=== PATIENT | female | born 1950 | race Caucasian/White ===

== ENCOUNTER → 2017-10-23 | Outpatient (CLI) | payer MEDICARE, OTHER ==
[~2017-10-23] MED LIST: AMLO10 PO; ATOR40TA PO; ATOR80 PO; CITA20 PO; CLOP75 PO; ENOX40I; GABA100 PO; GABA300; GABA400; GABA400 PO; Humalog100 UNIT/1; INSLI100I; INSUL100I SUBQ; INSULANI SC; INSULANI SUBQ; INSULANPEN INJ; INSULANPEN SC; LEVSOD100 PO; LEVSOD50 PO; LEVSOD75 PO; LISI10 PO; MEDICAL MARIJUANA; METH5 PO; Novolog Fl100 UNIT/1 INJ; OXYACE5T PO; PANT40 PO; UNKNOWN BP MED; WARF1 PO; WARF5; [UNRECOGNIZED DRUG - REMARK]
== END | disposition home or self-care (01) ==
LOC: LAB 11:58 → LAB SHORT 11:58
DX: R30.0 Dysuria (principal)
CPT/HCPCS: 87086

== ENCOUNTER 2018-06-20 11:05 | Day surgery (SDC) | payer MEDICARE, OTHER ==
[~2018-06-20] VITALS: Ht 160 cm; Wt 62.4 kg
[~2018-06-20 11:05] MED LIST changes: +Humalog100 UNIT/1 SC; +INSDET100 SC; +VARE1 PO
== END 2018-06-20 14:25 | disposition home or self-care (01) ==
LOC: ORSCSDS 11:05
PROVIDERS: Ophthalmology
PROC: 08RJ3JZ Replacement of Right Lens with Synthetic Substitute, Percutaneous Approach (ICD-10-PCS; principal; 2018-06-20 12:30)
DX: H25.11 Age-related nuclear cataract, right eye (principal); I10 Essential (primary) hypertension; F32.9 Major depressive disorder, single episode, unspecified; E11.36 Type 2 diabetes mellitus with diabetic cataract; E03.9 Hypothyroidism, unspecified; Z86.73 Personal history of transient ischemic attack (TIA), and cerebral infarction without residual deficits; Z87.891 Personal history of nicotine dependence; Z79.4 Long term (current) use of insulin; Z79.899 Other long term (current) drug therapy
CPT/HCPCS: 82947; J2001; J2250; J3010; J7120; V2632

== ENCOUNTER 2018-09-27 09:10 | Day surgery (SDC) | payer MEDICARE, OTHER ==
[~2018-09-27] VITALS: Ht 160 cm; Wt 64.1 kg
--- NOTE | 2018-09-27 10:18 | NUR ---
09/27/18 Dilan8 Haresh Carrasco 1ST IV ATTEMPT IN LH UNSUCCESSFUL, ORSC.CLARISSA 2ND IV ATTEMPT IN LH SUCCESSFUL, ORSC.TAVIA
--- NOTE | 2018-09-27 13:06 | NUR ---
09/27/18 4606 Radha Mckoen DISCUSSION WITH PATIENT REGARDING HYDROCODONE ALLERGY. PATIENT UNSURE WHY IT IS LISTED ALLERGY AND DOESN'T REMEMBER WHAT THE PROBLEM WAS. I CALLED HER PHARMACY--[facility]--AND THEY HAVE NO INFORMATION AND DO NOT LIST HYDROCODONE AN ALLERGY AND HAVE NEVER RX'D IT FOR HER. PATIENT ASKS ME IF I WILL TALK WITH DR DAVE AND ASK HIM IF HE WANTS HER TO TRY THIS. I GO TO THE OR AND SPEAK WITH DR DAVE AND HE CONFIRMS THAT SHE IS TO TRY THE HYDROCODONE AND BE SURE TO TAKE WITH FOOD AND TO CALL IF ANY PROBLEMS. I ALSO GET THE INFORMATION SHE IS TO RESTART HER PLAVIX TONIGHT. THIS WAS RELAYED TO THE PATIENT AND SHE VERBALIZES UNDERSTANDING OF ALL OF THE ABOVE INFORMATION. PATIENT WAS VERBALIZING THROUGHOUT THE STEP DOWN PROCESS THAT SHE WAS READY TO GO AND HAD NO PAIN OR PROBLEMS. SHE WAS DISCHARGED IN STABLE CONDITION
== END 2018-09-27 13:04 | disposition home or self-care (01) ==
LOC: ORSCSDS 09:10
PROVIDERS: Podiatrist Foot & Ankle Surgery
PROC: 0SGQ04Z Fusion of Left Toe Phalangeal Joint with Internal Fixation Device, Open Approach (ICD-10-PCS; principal; 2018-09-27 11:00)
PROC: 0SGN04Z Fusion of Left Metatarsal-Phalangeal Joint with Internal Fixation Device, Open Approach (ICD-10-PCS; principal; 2018-09-27 11:00)
PROC: 0QSP04Z Reposition Left Metatarsal with Internal Fixation Device, Open Approach (ICD-10-PCS; principal; 2018-09-27 11:00)
PROC: 0SQN0ZZ Repair Left Metatarsal-Phalangeal Joint, Open Approach (ICD-10-PCS; principal; 2018-09-27 11:00)
DX: M20.12 Hallux valgus (acquired), left foot (principal); M20.22 Hallux rigidus, left foot; M21.969 Unspecified acquired deformity of unspecified lower leg; M20.40 Other hammer toe(s) (acquired), unspecified foot; M77.42 Metatarsalgia, left foot; I10 Essential (primary) hypertension; E11.9 Type 2 diabetes mellitus without complications; E03.9 Hypothyroidism, unspecified; Z87.891 Personal history of nicotine dependence; Z79.899 Other long term (current) drug therapy
CPT/HCPCS: 82947; C1713; C1769; J0690; J2250; J2405; J2704; J3010; J7120

== ENCOUNTER → 2019-10-16 | Outpatient (CLI) | payer OTHER ==
[2019-10-16 14:48] LABS: BASOPHILS ABSOLUTE AUTO 0.08 K/mm3 (0.00-0.23); BASOPHILS PERCENT AUTO 2 % (0-2); EOSINOPHILS PERCENT AUTO 0 % (0-6); Hematocrit 41.5 % (33.0-51.0); Hemoglobin 13.7 g/dL (11.5-16.0); IMMATURE GRAN ABSOLUTE AUTO 0.01 K/mm3 (0.00-0.10); IMMATURE GRAN PERCENT AUTO 0 % (0-1); LYMPHOCYTES PERCENT AUTO 26 % (21-46); MONOCYTES ABSOLUTE AUTO 0.31 K/mm3 (0.16-1.47); MONOCYTES PERCENT AUTO 6 % (4-13); Mean Corpuscular HGB 28.7 pg (26.0-34.0); Mean Corpuscular Volume 87 fL (80-100); Mean Platelet Volume 10.2 fL (9.1-12.4); NEUTROPHILS PERCENT AUTO 67 % (41-73); Platelet Count 261 K/mm3 (150-400); RDW Coefficient Variation 12.2 % (11.7-14.2); RDW Standard Deviation 39.2 fL (35.1-46.3); Red Blood Cell Count 4.77 M/mm3 (3.80-5.20)
[2019-10-16 15:48] LABS: Alanine Aminotransfer (ALT/SGP 24 U/L (12-78); Albumin/Globulin Ratio 1.2 (0.8-1.8); Alk Phos 94 U/L (50-136); Anion Gap 8 mmol/L (6-16); Aspartate Aminotrans (AST/SGOT 18 U/L (12-37); Bilirubin, Total 1.3 mg/dL (0.1-1.0); Blood Urea Nitrogen 7 mg/dL (8-24); Bun/Creatinine Ratio 11.6 (12.0-20.0); CHOL/HDL RATIO 1.6; CO2, Blood 26 mmol/L (21-32); Calcium, Blood 9.2 mg/dL (8.5-10.1); Chloride, Blood 101 mmol/L (98-108); Cholesterol 156 mg/dL (50-200); Globulin, Blood 3.4 g/dL (2.2-4.0); Glomerular Filtration Rate >60 (60-); Glucose, Blood 155 mg/dL (70-99); HDL Cholesterol 98 mg/dL (>39); LDL/HDL RATIO 0.5; Low Density Lipoprotein Chol 50 mg/dL (0-110); Potassium, Blood 3.8 mmol/L (3.5-5.5); Sodium, Blood 135 mmol/L (136-145); Total Protein, Blood 7.4 g/dL (6.4-8.2); Triglycerides 40 mg/dL (30-160); Very Low Density Lipoprot Chol 8 mg/dL (6-32)
== END ==
PROVIDERS: Nurse Practitioner Family
DX: E11.40 Type 2 diabetes mellitus with diabetic neuropathy, unspecified (principal)

== ENCOUNTER → 2021-03-15 | Outpatient (CLI) | payer OTHER | END | disposition home or self-care (01) | LOC: LAB SHORT 11:08 | DX: L30.9 Dermatitis, unspecified (principal) | CPT/HCPCS: 88305; 88312 ==

== ENCOUNTER 2022-03-16 09:55 | Inpatient (IN) | payer OTHER ==
[~2022-03-16] VITALS: Ht 160 cm; Wt 65.9 kg
[~2022-03-16 09:55] MED LIST changes: +ASPI81CH PO; +ATOR20 PO; -ATOR40TA PO; +EUTHYROX50 MCG PO; +FAMO20 PO; +FIASP 100100 UNIT/4 SC; +HUMULIN R100 UNIT/2 SC; +INSULIN GL100 UNIT/2 SC
[2022-03-16 10:58] LABS: BASOPHILS ABSOLUTE AUTO 0.06 K/mm3 (0.00-0.23); BASOPHILS PERCENT AUTO 0 % (0-2); EOSINOPHILS ABSOLUTE AUTO 0.01 K/mm3 (0.00-0.68); EOSINOPHILS PERCENT AUTO 0 % (0-6); Hematocrit 42.4 % (33.0-51.0); Hemoglobin 13.9 g/dL (11.5-16.0); IMMATURE GRAN ABSOLUTE AUTO 0.13 K/mm3 (0.00-0.10); IMMATURE GRAN PERCENT AUTO 1 % (0-1); LYMPHOCYTES ABSOLUTE AUTO 1.15 K/mm3 (0.84-5.20); LYMPHOCYTES PERCENT AUTO 8 % (21-46); MONOCYTES ABSOLUTE AUTO 1.16 K/mm3 (0.16-1.47); MONOCYTES PERCENT AUTO 8 % (4-13); Mean Corpuscular HGB 29.1 pg (26.0-34.0); Mean Corpuscular HGB Conc 32.8 g/dL (31.5-36.5); Mean Corpuscular Volume 89 fL (80-100); Mean Platelet Volume 11.4 fL (9.1-12.4); NEUTROPHILS ABSOLUTE AUTO 12.28 K/mm3 (1.96-9.15); NEUTROPHILS PERCENT AUTO 83 % (41-73); Platelet Count 278 K/mm3 (150-400); RDW Coefficient Variation 13.1 % (11.7-14.2); RDW Standard Deviation 42.9 fL (35.1-46.3); Red Blood Cell Count 4.77 M/mm3 (3.80-5.20); White Blood Cell Count 14.79 K/mm3 (4.00-11.30)
[2022-03-16 10:59] LABS: Base Excess Venous -22.2 mmol/L
[2022-03-16 11:01] LABS: pH Blood Venous 7.08 (7.34-7.37)
[2022-03-16 11:23] LABS: Alanine Aminotransfer (ALT/SGP 24 U/L (12-78); Albumin/Globulin Ratio 1.1 (0.8-1.8); Alk Phos 87 U/L (50-136); Anion Gap 37 mmol/L (6-16); Aspartate Aminotrans (AST/SGOT 25 U/L (12-37); Bilirubin, Total 1.1 mg/dL (0.1-1.0); Blood Urea Nitrogen 42 mg/dL (8-24); Bun/Creatinine Ratio 38.2 (12.0-20.0); CO2, Blood 9 mmol/L (21-32); Calcium, Blood 9.9 mg/dL (8.5-10.1); Chloride, Blood 85 mmol/L (98-108); Globulin, Blood 3.5 g/dL (2.2-4.0); Glomerular Filtration Rate 54 (60-); Glucose, Blood 790 mg/dL (70-99); Potassium, Blood 4.5 mmol/L (3.5-5.5); Sodium, Blood 131 mmol/L (136-145); Total Protein, Blood 7.5 g/dL (6.4-8.2)
[2022-03-16 11:28] LABS: Magnesium, Blood 2.2 mg/dL (1.6-2.4)
[2022-03-16 11:34] LABS: Beta-hydroxybutyrate 131.9 mg/dL (0.2-2.8)
[2022-03-16 12:00] LABS: Influenza A, PCR NEGATIVE (NEGATIVE); Influenza B, PCR NEGATIVE (NEGATIVE); Resp Syncytial Virus, PCR NEGATIVE (NEGATIVE)
[2022-03-16 12:03] LABS: SARS-Cov-2 (COVID-19) PCR, MMC POSITIVE (NEGATIVE)
[2022-03-16 13:35] LABS: Source, Urine Clean Catch
[2022-03-16 14:01] LABS: Appearance, Urine Clear (Clear); Bilirubin, Urine Neg (Neg); Blood, Urine Neg (Neg); Color, Urine Yellow (P-Yellow); Glucose Qualitative, Urine 4+ (Neg); Ketones, Urine 4+ (Neg); Leukocyte Esterase, Urine 1+ (Neg); Nitrite, Urine Neg (Neg); Protein, Urine 2+ (Neg); Urobilinogen, Urine NORM (Normal)
[2022-03-16 14:08] LABS: Mucus Light (0-Heavy)
[2022-03-16 14:09] LABS: Amorphous Light (0-Heavy); Bacteria Mod /hpf; Red Blood Cells, Urine 0-2 /hpf (0-2); Squamous Epithelial Cells Few /hpf (Few)
[2022-03-16 14:41] LABS: Glucose, Blood 694 mg/dL (70-99)
[2022-03-16 15:33] LABS: Glucose, Blood 590 mg/dL (70-99)
[2022-03-16 17:27] LABS: Bun/Creatinine Ratio 35.8 (12.0-20.0); Creatinine, Blood 1.06 mg/dL (0.40-1.00); Potassium, Blood 3.4 mmol/L (3.5-5.5)
--- NOTE | 2022-03-16 17:27 | NUR ---
Admission/[place] of Care: Patient arrived from ED via stretcher, accompanied by ED RN's. Patient alert and oriented x4. Denies pain, discomfort, SOB, or dyspnea. VSS, spO2 100% on RA. Peripheral IVs to left AC and left hand. Left AC IV patent and intact. Left hand IV very painful with flushing, therefore d/c'd without difficulty. New Powerglide ST placed to DEDRICK without difficulty. Arrived with insulin gtt at 6.4u/hr, resumed at 6u/hr by this RN, then decreased to 4u/hr as blood glucose decreasing at slightly over 100/hr. Voided using bedpan without difficulty. Instructed on use of call light and to not get out of bed without assistance. Will continue to monitor.
[2022-03-16 20:51] LABS: Bun/Creatinine Ratio 36.8 (12.0-20.0); Calcium, Blood 8.8 mg/dL (8.5-10.1); Creatinine, Blood 0.93 mg/dL (0.40-1.00); Potassium, Blood 4.1 mmol/L (3.5-5.5)
[2022-03-17 02:08] LABS: Bun/Creatinine Ratio 36.3 (12.0-20.0); Calcium, Blood 8.6 mg/dL (8.5-10.1); Creatinine, Blood 0.77 mg/dL (0.40-1.00); Potassium, Blood 3.9 mmol/L (3.5-5.5)
[2022-03-17 05:06] LABS: Hematocrit 33.2 % (33.0-51.0); Hemoglobin 11.8 g/dL (11.5-16.0); Mean Corpuscular HGB 28.9 pg (26.0-34.0); Mean Corpuscular HGB Conc 35.5 g/dL (31.5-36.5); Mean Platelet Volume 10.2 fL (9.1-12.4); Platelet Count 232 K/mm3 (150-400); RDW Standard Deviation 38.8 fL (35.1-46.3); Red Blood Cell Count 4.08 M/mm3 (3.80-5.20); White Blood Cell Count 14.06 K/mm3 (4.00-11.30)
[2022-03-17 05:25] LABS: Albumin, Blood 3.1 g/dL (3.4-5.0); Albumin/Globulin Ratio 1.1 (0.8-1.8); Bilirubin, Total 0.5 mg/dL (0.1-1.0); Bun/Creatinine Ratio 38.1 (12.0-20.0); Calcium, Blood 8.4 mg/dL (8.5-10.1); Creatinine, Blood 0.66 mg/dL (0.40-1.00); Globulin, Blood 2.8 g/dL (2.2-4.0); Potassium, Blood 3.7 mmol/L (3.5-5.5); Total Protein, Blood 5.9 g/dL (6.4-8.2)
--- NOTE | 2022-03-17 05:39 | NUR ---
SHIFT SUMMARY: PT. REMAINED STABLE OVERNIGHT, INSULIN WAS ABLE TO BE BROUGHT DOWN TO 2 UNITS, BG WAS LAST 136. PT. HAS D5 GOING AT 100. OTHERWISE PT. HAD NO COMPLAINTS BESIDES A BRIEF EPISODE OF NAUSEA. PT. SATTED WELL ON RA OVERNIGHT AND BP WAS STABLE AND WNL. HR WAS NSR WITH OCCASIONAL PVCS. PT. HAD 800 UOP OVERNIGHT AND GAP IS 7. PT. RESTING WITH CALL LIGHT WITHIN REACH.
[2022-03-17 05:57] LABS: Mean Corpuscular Volume 81 fL (80-100)
--- NOTE | 2022-03-17 07:05 | NUR ---
TOOK OVER CARE OF PT AT 0700, PT RESTING ON RA, INSULIN GTT AT 2 UNITS/HR, D5W RUNNING AT 100ML/HR
[2022-03-17] MEDS ORDERED: Insulin Glargine-Yfg SC (07:13)
[2022-03-17] MEDS ORDERED: AMLO10 PO (07:14)
[2022-03-17] MEDS ORDERED: ASPI81CH PO (07:16)
[2022-03-17] MEDS ORDERED: ATORVASTATIN CA80 M1 PO (07:17)
[2022-03-17] MEDS ORDERED: FAMO20 PO (07:18)
[2022-03-17] MEDS ORDERED: SYNTHROID75 MCG PO (07:19)
[2022-03-18 02:17] LABS: Anion Gap 19 mmol/L (6-16); Blood Urea Nitrogen 19 mg/dL (8-24); Bun/Creatinine Ratio 31.2 (12.0-20.0); CO2, Blood 16 mmol/L (21-32); Calcium, Blood 8.6 mg/dL (8.5-10.1); Chloride, Blood 103 mmol/L (98-108); Creatinine, Blood 0.61 mg/dL (0.40-1.00); Glomerular Filtration Rate 97 (60-); Glucose, Blood 391 mg/dL (70-99); Magnesium, Blood 2.2 mg/dL (1.6-2.4); Phosphorus, Blood 1.9 mg/dL (2.5-4.9); Potassium, Blood 4.3 mmol/L (3.5-5.5); Sodium, Blood 138 mmol/L (136-145)
[2022-03-18 02:22] LABS: BASOPHILS ABSOLUTE AUTO 0.02 K/mm3 (0.00-0.23); BASOPHILS PERCENT AUTO 0 % (0-2); EOSINOPHILS PERCENT AUTO 0 % (0-6); Hematocrit 35.4 % (33.0-51.0); Hemoglobin 12.1 g/dL (11.5-16.0); IMMATURE GRAN ABSOLUTE AUTO 0.11 K/mm3 (0.00-0.10); IMMATURE GRAN PERCENT AUTO 1 % (0-1); LYMPHOCYTES PERCENT AUTO 6 % (21-46); MONOCYTES ABSOLUTE AUTO 0.79 K/mm3 (0.16-1.47); MONOCYTES PERCENT AUTO 6 % (4-13); Mean Corpuscular HGB 28.7 pg (26.0-34.0); Mean Corpuscular HGB Conc 34.2 g/dL (31.5-36.5); Mean Corpuscular Volume 84 fL (80-100); NEUTROPHILS ABSOLUTE AUTO 11.19 K/mm3 (1.96-9.15); NEUTROPHILS PERCENT AUTO 87 % (41-73); Platelet Count 213 K/mm3 (150-400); RDW Coefficient Variation 13.3 % (11.7-14.2); RDW Standard Deviation 40.9 fL (35.1-46.3); Red Blood Cell Count 4.21 M/mm3 (3.80-5.20); White Blood Cell Count 12.91 K/mm3 (4.00-11.30)
--- NOTE | 2022-03-18 05:24 | NUR ---
ICING AND GLAZE MAKER SUMMARY: A&Ox4. PLEASANT AND COOPERATIVE WITH CARE. VSS; LOW-GRADE FEVER NOTED LAST NIGHT, BUT QUICKLY RESOLVED. NO C/O PAIN OR DISCOMFORT T/O THE NIGHT. LABS EARLY THIS AM DRAWN FROM [employer]; PATENT, FLUSHES, DRAWS AND IS SALINE LOCKED. NO ACUTE CONCERNS T/O THE NIGHT. WILL REPORT TO ONCOMING RN.
[2022-03-18 10:27] LABS: Glucose, Blood 305 mg/dL (70-99)
[2022-03-18 12:33] LABS: Bun/Creatinine Ratio 23.3 (12.0-20.0); Calcium, Blood 8.2 mg/dL (8.5-10.1); Creatinine, Blood 0.65 mg/dL (0.40-1.00); Potassium, Blood 4.1 mmol/L (3.5-5.5)
[2022-03-18 15:19] LABS: Glucose, Blood 224 mg/dL (70-99)
--- NOTE | 2022-03-18 16:36 | NUR ---
PT AOX4 AND COOPERATIVE OF CARE. PT WAS NPO DUE TO HIGH CBGS IN AM. DR FREITAS ADDED MEDICATIONS TO EMAR AND PT WAS TREATED. LAST THREE LAB CPGs 305, 262 AND THEN 224. PT DID NOT EAT LUNCH WELL. WILL CONTINUE TO MONITOR. CALL LIGHT IS WITHIN REACH.
[2022-03-19 02:27] LABS: Hematocrit 32.4 % (33.0-51.0); Hemoglobin 11.7 g/dL (11.5-16.0); Mean Corpuscular HGB 29.4 pg (26.0-34.0); Mean Corpuscular HGB Conc 36.1 g/dL (31.5-36.5); Mean Corpuscular Volume 81 fL (80-100); Mean Platelet Volume 9.5 fL (9.1-12.4); Platelet Count 180 K/mm3 (150-400); RDW Coefficient Variation 13.2 % (11.7-14.2); RDW Standard Deviation 39.3 fL (35.1-46.3); Red Blood Cell Count 3.98 M/mm3 (3.80-5.20); White Blood Cell Count 6.18 K/mm3 (4.00-11.30)
[2022-03-19 03:05] LABS: Bun/Creatinine Ratio 15.4 (12.0-20.0); Calcium, Blood 8.6 mg/dL (8.5-10.1); Creatinine, Blood 0.52 mg/dL (0.40-1.00); Potassium, Blood 3.2 mmol/L (3.5-5.5)
--- NOTE | 2022-03-19 04:46 | NUR ---
OUTPATIENT ADMITTING CLERK SUMMARY: A&Ox4. PLEASANT AND COOPERATIVE WITH CARE. VSS. CONTINUES TO C/O SEVERE FATIGUE. CONTINUES WITH FREQUENT GLUCOSE CHECKS. HELD GLARGINE LAST NIGHT D/T GLUCOSE OF 135; GLUCOSE AT 0200 CHECK WAS 117. STILL NO INTEREST IN ANY FOOD AND HARDLY DRINKING. REPORTS FEELING MALAISED AND WANTING TO SLEEP ALL OF THE TIME. WILL REPORT TO ONCOMING RN.
[2022-03-19 09:05] LABS: Bun/Creatinine Ratio 14.1 (12.0-20.0); Calcium, Blood 8.6 mg/dL (8.5-10.1); Creatinine, Blood 0.5 mg/dL (0.40-1.00); Potassium, Blood 3.3 mmol/L (3.5-5.5)
--- NOTE | 2022-03-19 12:36 | NUR ---
PT STATES THAT SHE CONTINUES TO HAVE DECREASED APPETITE. "NOTHING TASTES GOOD." PER DR. SWAIN'S REQUEST WHILE HE WAS ROUNDING THIS AM, PT HAS BEEN SELF-ADMINISTERING INSULIN INJECTIONS. PT C/O FATIGUE AND HEADACHE. SHE IS ALERT TO PERSON, PLACE, SELF, BUT WILL SEEM CONFUSED AT TIMES. FOR EXAMPLE, WHILE GIVING HERSELF INSULIN INJECTION RN HAD TO BANDAGE MAKER PT WHEN TO REMOVE THE COVER FROM THE PEN NEEDLE, AND HOW TO HOLD THE NEEDLE, ETC.
--- NOTE | 2022-03-19 17:05 | NUR ---
SHIFT SUMMARY PT IS ON ISOLATION PRECAUTIONS FOR COVID. ADMITTED FOR DKA. FATIGUE R/T COVID. SHE IS SOMEWHAT CONFUSED/FORGETFUL AT TIMES. BOTH SONS VISITED HER TODAY. BLOOD SUGARS RANGED FROM 170'S TO 264. RHINITIS AND CONGESTED COUGH. PT DENIES PAIN OR SOB. LUNGS ARE DIMINISHED BUT CRACKLY AT BASES. RECEIVED POTASSIUM CHLORIDE THIS AM FOR POTASSIUM OF 3.2. PT IS ABLE TO USE CALL LIGHT APPROPRIATELY. SHE IS INDEPENDENT IN ROOM.
--- NOTE | 2022-03-20 01:12 | NUR ---
AT [id number] THIS RN RETURNED TO NURSE CROP SETTING OUT MACHINE OPERATOR AND HEARD BANGING. WENT TO PT'S ROOM AND FOUND HER SITTING IN THE THE SHOWER, WITH HER LEGS OUTSIDE OF IT. PT STATED SHE FELL WHILE TRYING TO GO TO THE BATHROOM. ASKED WHY SHE DID NOT CALL AND SHE ASKED, "HOW AM I SUPPOSED TO DO THAT? THE BUTTON IS ON THE BED!" NO C/O PAIN. NO BLEEDING NOTED. DENIES HITTING HEAD OR LOC. NO VISIBLE INJURIES NOTED. VS OBTAINED: 148/84, 85bpm, 97% RA, CAPILLARY GLUCOSE 211. RESIDENT DR MARY DO NOTIFIED. PT HAD BEEN CHECKED ON LESS THAN AN HOUR PRIOR, TAKEN TO BATHROOM, REPOSITIONED IN BED AND ENSURED CALL LIGHT WAS IN PT'S HAND AND HAD PT VOICE TO THIS RN HOW TO CALL FOR ASSISTANCE. PT DID START MIRTAZAPINE 15MG AT BEDTIME. NO OTHER NOTABLE CHANGES. BED ALARM SET AND EDUCATION RE-ENFORCED. WILL CONTINUE TO MONITOR.
--- NOTE | 2022-03-20 04:52 | NUR ---
PUBLIC RELATIONS STUDIES DIRECTOR SUMMARY: A&Ox4. PLEASANT WITH CARE, BUT UNDERESTIMATES ABILITIES. HAD AN UNWITNESSED, NON-INJURY FALL LAST NIGHT. 3 RNs ASSISTED PT UP AND BACK INTO BED & BED ALARM ENGAGED. VS AND CAPILLARY GLUCOSE OBTAINED; ALL WNL. NO C/O PAIN AND NO OBVIOUS INJURIES. SHE DID START NEW MEDICATION, MIRTAZAPINE LAST NIGHT. VSS. VOIDING. NOTED TO HAVE HACKING COUGH; OBTAINED ORDER FOR PRN MARGOT PATIÑO QID PRN BUT HAS NOT NEEDED SINCE OBTAINING ORDER. WILL REPORT TO ONCOMING RN.
[2022-03-20 05:44] LABS: Hematocrit 36.7 % (33.0-51.0); Hemoglobin 13.1 g/dL (11.5-16.0)
[2022-03-20 06:14] LABS: Bilirubin, Total 1.5 mg/dL (0.1-1.0); Bun/Creatinine Ratio 12.8 (12.0-20.0); Calcium, Blood 8.8 mg/dL (8.5-10.1); Creatinine, Blood 0.55 mg/dL (0.40-1.00); Globulin, Blood 3.1 g/dL (2.2-4.0); Potassium, Blood 3.1 mmol/L (3.5-5.5); Total Protein, Blood 6.1 g/dL (6.4-8.2)
[2022-03-20] MEDS ORDERED: AMLO5 PO (15:45)
[2022-03-20] MEDS ORDERED: Benzonatate100 MG PO (15:46)
[2022-03-20] MEDS ORDERED: HUMALOG KW100 UNIT/1 SC ×2 (15:49→15:51)
[2022-03-20] MEDS ORDERED: MIRT15 PO (15:53)
== END 2022-03-20 16:52 | disposition home or self-care (01) | DRG 637 ==
LOC: ER 09:55 → ICUW 12:27 → ICUE 12:27 → MEDS 12:27 → ICUE 15:24 → MEDS 03-17 16:43
PROVIDERS: Emergency Medicine; Family Medicine; Nurse Practitioner Acute Care; Student in an Organized Health Care Education/Training Program; ADMIT Internal Medicine
PROC: 8E0ZXY6 Isolation (ICD-10-PCS; principal; 2022-03-16)
DX: E11.10 Type 2 diabetes mellitus with ketoacidosis without coma (principal); G92.8 Other toxic encephalopathy; U07.1 COVID-19; N17.9 Acute kidney failure, unspecified; E78.5 Hyperlipidemia, unspecified; I10 Essential (primary) hypertension; Z86.73 Personal history of transient ischemic attack (TIA), and cerebral infarction without residual deficits; E03.9 Hypothyroidism, unspecified; Z88.8 Allergy status to other drugs, medicaments and biological substances; F32.A Depression, unspecified; M06.9 Rheumatoid arthritis, unspecified; Z98.890 Other specified postprocedural states; Z98.42 Cataract extraction status, left eye; Z98.41 Cataract extraction status, right eye; Z88.5 Allergy status to narcotic agent; D72.828 Other elevated white blood cell count; Z87.891 Personal history of nicotine dependence
CPT/HCPCS: 0241U; 36415; 71045; 80048; 80053; 80069; 81001; 82010; 82803; 82947; 83036; 83605; 83690; 83735; 83880; 85014; 85018; 85025; 85027; 87086; 93005; 93010; 96361; 96365; 96366; 96375; 96376; 99285-25; A9270; C1751; J1650; J1815; J2405; J3475; J3480; J7030; J7042; J7050; J7120

== ENCOUNTER → 2022-10-24 | Outpatient (CLI) | payer OTHER ==
[~2022-10-24] MED LIST changes: +AMLO5 PO; +ATORVASTATIN CA80 M1 PO; +Benzonatate100 MG PO; +HUMALOG KW100 UNIT/1 SC; +Insulin Glargine-Yfg SC; +MIRT15 PO; +SYNTHROID75 MCG PO
[2022-10-24 17:15] LABS: BASOPHILS ABSOLUTE AUTO 0.08 K/mm3 (0.00-0.23); BASOPHILS PERCENT AUTO 1 % (0-2); EOSINOPHILS ABSOLUTE AUTO 0.02 K/mm3 (0.00-0.68); EOSINOPHILS PERCENT AUTO 0 % (0-6); Hemoglobin 13.3 g/dL (11.5-16.0); IMMATURE GRAN ABSOLUTE AUTO 0.01 K/mm3 (0.00-0.10); IMMATURE GRAN PERCENT AUTO 0 % (0-1); LYMPHOCYTES PERCENT AUTO 25 % (21-46); MONOCYTES ABSOLUTE AUTO 0.41 K/mm3 (0.16-1.47); MONOCYTES PERCENT AUTO 7 % (4-13); Mean Corpuscular HGB 28.1 pg (26.0-34.0); Mean Corpuscular HGB Conc 34.1 g/dL (31.5-36.5); Mean Corpuscular Volume 83 fL (80-100); Mean Platelet Volume 11.1 fL (9.1-12.4); NEUTROPHILS ABSOLUTE AUTO 3.64 K/mm3 (1.96-9.15); NEUTROPHILS PERCENT AUTO 65 % (41-73); Platelet Count 251 K/mm3 (150-400); RDW Standard Deviation 39.1 fL (35.1-46.3); Red Blood Cell Count 4.73 M/mm3 (3.80-5.20); White Blood Cell Count 5.56 K/mm3 (4.00-11.30)
[2022-10-24 18:21] LABS: Alanine Aminotransfer (ALT/SGP 22 U/L (12-78); Albumin, Blood 3.8 g/dL (3.4-5.0); Alk Phos 99 U/L (50-136); Anion Gap 7 mmol/L (6-16); Aspartate Aminotrans (AST/SGOT 21 U/L (12-37); Bilirubin, Total 1.1 mg/dL (0.1-1.0); Blood Urea Nitrogen 16 mg/dL (8-24); Bun/Creatinine Ratio 23.7 (12.0-20.0); CHOL/HDL RATIO 1.7; CO2, Blood 25 mmol/L (21-32); Calcium, Blood 9.5 mg/dL (8.5-10.1); Chloride, Blood 101 mmol/L (98-108); Cholesterol 129 mg/dL (50-200); Creatinine, Blood 0.68 mg/dL (0.40-1.00); Globulin, Blood 3.7 g/dL (2.2-4.0); Glomerular Filtration Rate 94 (60-); Glucose, Blood 316 mg/dL (70-99); HDL Cholesterol 74 mg/dL (>39); LDL/HDL RATIO 0.6; Low Density Lipoprotein Chol 44 mg/dL (0-110); Potassium, Blood 4.2 mmol/L (3.5-5.5); Sodium, Blood 133 mmol/L (136-145); Total Protein, Blood 7.5 g/dL (6.4-8.2); Triglycerides 57 mg/dL (30-160); Very Low Density Lipoprot Chol 11 mg/dL (6-32)
== END | disposition home or self-care (01) ==
LOC: LAB SHORT 13:58 → LAB 13:58
PROVIDERS: Nurse Practitioner Family
DX: E11.40 Type 2 diabetes mellitus with diabetic neuropathy, unspecified (principal); E03.9 Hypothyroidism, unspecified; E78.5 Hyperlipidemia, unspecified; I10 Essential (primary) hypertension
CPT/HCPCS: 80053; 80061; 83036; 84443; 85025

== ENCOUNTER → 2022-11-01 | Outpatient (CLI) | payer OTHER ==
[2022-11-01 20:13] LABS: Creatinine, Urine Random 50.8 mg/dL (27.00-270.00); Microalb/Creat Ratio UR, Rand 67.126 mg/g (0.000-30.000); Microalbumin, Random Urine 34.1 mg/L (0.000-20.000)
== END | disposition home or self-care (01) ==
LOC: LAB 17:32 → LAB SHORT 17:32
PROVIDERS: Nurse Practitioner Family
DX: E11.40 Type 2 diabetes mellitus with diabetic neuropathy, unspecified (principal)
CPT/HCPCS: 82043; 82570

== ENCOUNTER → 2023-01-26 | Outpatient (CLI) | payer OTHER ==
[2023-01-26 19:28] LABS: Bun/Creatinine Ratio 16.5 (12.0-20.0); Calcium, Blood 9.4 mg/dL (8.5-10.1); Creatinine, Blood 0.61 mg/dL (0.40-1.00); Potassium, Blood 3.9 mmol/L (3.5-5.5); Thyroid Stimulating Hormone 4.05 uIU/mL (0.360-4.800)
== END ==
LOC: LAB 17:53 → LAB SHORT 17:53
PROVIDERS: Nurse Practitioner Family
DX: I10 Essential (primary) hypertension (principal); E03.9 Hypothyroidism, unspecified; E11.8 Type 2 diabetes mellitus with unspecified complications
CPT/HCPCS: 80048; 83036; 84443

== ENCOUNTER 2023-11-21 13:55 | Inpatient (IN) | payer OTHER ==
[~2023-11-21] VITALS: Ht 162.6 cm; Wt 62.5 kg
[2023-11-21] MEDS ORDERED: Ondansetron HCl 2 MG / ML 2ML Vial IV ONE (14:00)
[2023-11-21 14:19] LABS: BASOPHILS ABSOLUTE AUTO 0.03 K/mm3 (0.00-0.23); BASOPHILS PERCENT AUTO 0 % (0-2); EOSINOPHILS PERCENT AUTO 0 % (0-6); Hematocrit 48.2 % (33.0-51.0); IMMATURE GRAN ABSOLUTE AUTO 0.08 K/mm3 (0.00-0.10); IMMATURE GRAN PERCENT AUTO 1 % (0-1); LYMPHOCYTES ABSOLUTE AUTO 1.35 K/mm3 (0.84-5.20); LYMPHOCYTES PERCENT AUTO 8 % (21-46); MONOCYTES PERCENT AUTO 4 % (4-13); Mean Corpuscular HGB 28.6 pg (26.0-34.0); Mean Corpuscular HGB Conc 35.3 g/dL (31.5-36.5); Mean Corpuscular Volume 81 fL (80-100); Mean Platelet Volume 9.9 fL (9.1-12.4); NEUTROPHILS ABSOLUTE AUTO 14.78 K/mm3 (1.96-9.15); NEUTROPHILS PERCENT AUTO 88 % (41-73); Platelet Count 378 K/mm3 (150-400); RDW Coefficient Variation 12.9 % (11.7-14.2); RDW Standard Deviation 37.6 fL (35.1-46.3); Red Blood Cell Count 5.95 M/mm3 (3.80-5.20); White Blood Cell Count 16.84 K/mm3 (4.00-11.30)
[2023-11-21] MEDS ORDERED: Diltiazem HCl 5 MG / ML 5ML Vial IV ONE ×2 (14:35→14:40)
[2023-11-21] MEDS ORDERED: NS 1,000 ML IV SCH ×3 (14:35→22:25)
[2023-11-21] MEDS ORDERED: dilTIAZem HCL 125 MG in Dextrose 5% 100 ML IV SCH (14:35)
[2023-11-21 14:42] LABS: Albumin, Blood 4.6 g/dL (3.4-5.0); Bilirubin, Total 1.6 mg/dL (0.1-1.0); Bun/Creatinine Ratio 21.1 (12.0-20.0); Calcium, Blood 11.1 mg/dL (8.5-10.1); Creatinine, Blood 1.8 mg/dL (0.40-1.00); Globulin, Blood 4.7 g/dL (2.2-4.0); Total Protein, Blood 9.3 g/dL (6.4-8.2)
[2023-11-21 15:08] LABS: Magnesium, Blood 2.4 mg/dL (1.6-2.4); Thyroid Stimulating Hormone 6.55 uIU/mL (0.360-4.800)
[2023-11-21] MEDS ORDERED: Potassium Chloride 20 MEQ TabCR PO ONE (15:25)
[2023-11-21] MEDS ORDERED: Ondansetron HCl 2 MG / ML 2ML Vial IV PRN (16:40)
[2023-11-21] MEDS ORDERED: Metoclopramide HCl 5MG / ML 2ML Vial IV PRN (16:40)
[2023-11-21] MEDS ORDERED: Prochlorperazine Edisylate 10 mg Vial IV PRN (16:40)
[2023-11-21] MEDS ORDERED: Acetaminophen 325 MG TABLET PO PRN (16:45)
[2023-11-21] MEDS ORDERED: Potassium Chloride 40 MEQ in NS 250 ML IV STA (16:46)
[2023-11-21] MEDS ORDERED: Metoprolol Tartrate 25 MG Tab PO SCH (18:00)
[2023-11-21 18:38] VITALS: BP 144/67
--- NOTE | 2023-11-21 18:57 | NUR ---
ARRIVAL/ TRANSFER OF CARE TO INTELLIGENCE CONSULTANT RN PATIENT ARRIVED TO UNIT AT 1830. PATIENT CALM, COOPERATIVE, PLEASANT. PATIENT ALERT AND ORIENTED X 4. PATIENT AFEBRILE. PATIENT DENIES PAIN. PATIENT SATTING 90% AND GREATER ON RA. HR AND BP STABLE. IVS TO BILAT ACS. NS STARTED AT 125 MLS/ HOUR. POTASSIUM REPLACEMENT RESTARTED. METOPROLOL PO GIVEN IN ED. CARDIZEM PLACED ON HOLD BY THIS NURSE WHEN ARRIVED TO PCU. PATIENT ORIENTED TO UNIT, ROOM AND CALL LIGHT. BED LOW, CALL LIGHT IN REACH. REPORT WILL BE GIVEN TO ASSUMING INTELLIGENCE CONSULTANT NURSE SHORTLY.
[2023-11-21 20:23] VITALS: BP 122/64
[2023-11-21] MEDS ORDERED: Insulin Regular 100 UNIT/ML 10ML Vial SC SCH (21:00)
[2023-11-21] MEDS ORDERED: Insulin Glargine-Yfgn 100 Unit/mL 3 ML SYR SC SCH (21:00)
--- NOTE | 2023-11-21 21:31 | NUR ---
medication reconcilliation: Attempted to call son at number posted on the board . reno unaware of medications at time of assessment.
[2023-11-21] MEDS ORDERED: NS 500 ML IV SCH (23:00)
[2023-11-22] VITALS (8 sets, daily range): BP systolic 121–165; BP diastolic 43–70
[2023-11-22 01:34] LABS: BASOPHILS ABSOLUTE AUTO 0.02 K/mm3 (0.00-0.23); BASOPHILS PERCENT AUTO 0 % (0-2); EOSINOPHILS PERCENT AUTO 0 % (0-6); Hematocrit 42.7 % (33.0-51.0); Hemoglobin 14.3 g/dL (11.5-16.0); IMMATURE GRAN ABSOLUTE AUTO 0.05 K/mm3 (0.00-0.10); IMMATURE GRAN PERCENT AUTO 0 % (0-1); LYMPHOCYTES ABSOLUTE AUTO 1.12 K/mm3 (0.84-5.20); LYMPHOCYTES PERCENT AUTO 6 % (21-46); MONOCYTES ABSOLUTE AUTO 1.09 K/mm3 (0.16-1.47); MONOCYTES PERCENT AUTO 6 % (4-13); Mean Corpuscular HGB 29.1 pg (26.0-34.0); Mean Corpuscular HGB Conc 33.5 g/dL (31.5-36.5); NEUTROPHILS ABSOLUTE AUTO 16.84 K/mm3 (1.96-9.15); NEUTROPHILS PERCENT AUTO 88 % (41-73); Platelet Count 235 K/mm3 (150-400); RDW Coefficient Variation 13.2 % (11.7-14.2); RDW Standard Deviation 41.1 fL (35.1-46.3); Red Blood Cell Count 4.91 M/mm3 (3.80-5.20); White Blood Cell Count 19.12 K/mm3 (4.00-11.30)
[2023-11-22 01:39] LABS: Mean Corpuscular Volume 87 fL (80-100)
[2023-11-22 02:16] LABS: Albumin, Blood 3.4 g/dL (3.4-5.0); Bilirubin, Total 1.1 mg/dL (0.1-1.0); Bun/Creatinine Ratio 30.2 (12.0-20.0); Creatinine, Blood 1.26 mg/dL (0.40-1.00); Globulin, Blood 3.5 g/dL (2.2-4.0); Potassium, Blood 4.3 mmol/L (3.5-5.5)
[2023-11-22 02:17] LABS: Total Protein, Blood 6.9 g/dL (6.4-8.2)
[2023-11-22 03:58] LABS: Source, Urine Straight Cath
[2023-11-22 04:18] LABS: Bilirubin, Urine Neg (Neg); Blood, Urine 2+ (Neg); Glucose Qualitative, Urine 4+ (Neg); Ketones, Urine 4+ (Neg); Leukocyte Esterase, Urine Neg (Neg); Nitrite, Urine Neg (Neg); Protein, Urine 2+ (Neg); Specific Gravity, Urine 1.015 (1.003-1.022); Urobilinogen, Urine NORM (Normal)
[2023-11-22 04:32] LABS: Appearance, Urine Clear (Clear); Color, Urine Yellow (P-Yellow)
[2023-11-22 04:33] LABS: Bacteria Few /hpf; Red Blood Cells, Urine 0-2 /hpf (0-2); Squamous Epithelial Cells Few /hpf (Few); White Blood Cells, Urine 0-2 /hpf (0-5)
--- NOTE | 2023-11-22 05:22 | NUR ---
SHIFT SUMMARY ASSUMED CARE OF PT AT 1900. PT IS A/OX4 BUT SLOW TO RESPOND. HEART SOUNDS REGULAR IN THE 70S BPM. LUNG SOUNDS DIMINISHED AT THE BASES. PT WAS A 2P ASSIST TO BSC. PT DID NOT VOID DESPITE SITTING ON BSC. BLADDER SCAN SHOWED 577. PT STILL DENIED HAING TO VOID. STRAIGHT CATH WITH URINE OUTPUT OF 600.NO OTHER EVENTS. PT SLEPT T/O THE NOC.
[2023-11-22] MEDS ORDERED: Pantoprazole Sodium 40 MG Injection IV SCH (06:00)
[2023-11-22] MEDS ORDERED: Levothyroxine Sodium 0.1 MG Tab PO SCH (06:00)
[2023-11-22] MEDS ORDERED: Enoxaparin 40 MG/0.4 ML SYR SC SCH (09:00)
[2023-11-22] MEDS ORDERED: Enoxaparin 30 MG/0.3 ML SYR SC SCH (09:00)
--- NOTE | 2023-11-22 13:12 | NUR ---
[employer] NOTIFIED THIS RN THAT PT HAD A BEAT RUN OF VTACH. PT CURRENTLY RESTING COMFORTABLY.
[2023-11-22] MEDS ORDERED: NS 1,000 ML IV SCH (15:55)
[2023-11-22 18:12] LABS: U Amphetamine Screen Not Detected; U Barbituate Screen Not Detected; U Benzodiazapine Screen Not Detected; U Buprenorphine Screen Not Detected; U Cannabinoids Screen Not Detected; U Cocaine Screen Not Detected; U Methadone Screen Not Detected; U Methamphetamine Screen Not Detected; U Opiates Screen Not Detected; U Oxycodone Screen Not Detected; U Phencyclidine Screen Not Detected
--- NOTE | 2023-11-22 18:33 | NUR ---
SHIFT SUMMARY PT A/OX 4 AND COOPERATIVE OF CARE. PT SLEEPY FOR MOST OF SHIFT, PERKED UP ONCE SHE WAS UP TO RECLINER. PT VSS THROUGHOUT SHIFT WITH O2 SATS IN THE 90'S ON RA. NO REPORT OF CHEST PAIN/PRESSURE. NO REPORT OF SOB/DYSPNEA. PT APPETITE POOR, PT DID NOT EAT MUCH OF ANY OF HER TRAYS. PT ENCOURAGED TO EAT, PT STATES "I CAN'T. I JUST DON'T FEEL HUNGRY." ECHO DONE TODAY, SEE CHART FOR RESULTS. PT SON TO BEDSIDE MULTIPLE TIMES DURING SHIFT, UPDATED ON CURRENT TREATMENT.
[2023-11-22] MEDS ORDERED: Apixaban 5 MG Tab PO SCH (21:00)
[2023-11-23 01:55] LABS: SARS-Cov-2 (COVID-19) PCR, MMC NEGATIVE (NEGATIVE)
[2023-11-23 03:56] VITALS: BP 123/61
[2023-11-23 04:10] LABS: BASOPHILS ABSOLUTE AUTO 0.03 K/mm3 (0.00-0.23); BASOPHILS PERCENT AUTO 0 % (0-2); EOSINOPHILS PERCENT AUTO 0 % (0-6); Hematocrit 41.3 % (33.0-51.0); Hemoglobin 13.3 g/dL (11.5-16.0); IMMATURE GRAN ABSOLUTE AUTO 0.05 K/mm3 (0.00-0.10); IMMATURE GRAN PERCENT AUTO 0 % (0-1); LYMPHOCYTES ABSOLUTE AUTO 1.84 K/mm3 (0.84-5.20); LYMPHOCYTES PERCENT AUTO 15 % (21-46); MONOCYTES ABSOLUTE AUTO 0.65 K/mm3 (0.16-1.47); MONOCYTES PERCENT AUTO 5 % (4-13); Mean Corpuscular HGB 28.9 pg (26.0-34.0); Mean Corpuscular HGB Conc 32.2 g/dL (31.5-36.5); Mean Corpuscular Volume 90 fL (80-100); Mean Platelet Volume 10.2 fL (9.1-12.4); NEUTROPHILS PERCENT AUTO 79 % (41-73); Platelet Count 211 K/mm3 (150-400); RDW Coefficient Variation 13.4 % (11.7-14.2); White Blood Cell Count 12.37 K/mm3 (4.00-11.30)
[2023-11-23 04:32] LABS: Bun/Creatinine Ratio 38.3 (12.0-20.0); Creatinine, Blood 0.55 mg/dL (0.40-1.00); Magnesium, Blood 1.8 mg/dL (1.6-2.4); Potassium, Blood 3.9 mmol/L (3.5-5.5)
--- NOTE | 2023-11-23 05:32 | NUR ---
SHIFT SUMMARY ASSUMED CARE OF PT AT 1900. PT IS A/OX4. THIS NURSE NOTIED PT IS MORE ALERT THIS SHIFT. HEART SOUNDS REGULAR. LUNG SOUDS CLEAR. PT SLEPT T/O THE NOC. PT 1P SBA TRANSFER. NO NEW COMPLAINTS.
[2023-11-23 07:59] VITALS: BP 119/65
[2023-11-23] MEDS ORDERED: Lactated Ringer's 1,000 ML IV SCH (08:10)
[2023-11-23 12:20] VITALS: BP 117/74
[2023-11-23 16:17] VITALS: BP 154/61
--- NOTE | 2023-11-23 18:09 | NUR ---
SHIFT SUMMARY PT A/OX3-4, HAS SOME PERIODS OF SLIGHT CONFUSION, EASILY REOPRIENTED. PT'S VSS THROUGHOUT SHIFT WITH O2 SATS IN THE 90'S ON RA. NO REPORT OF CHEST PAIN/PRESSURE THROUGHOUT SHIFT. NO REPORT OF SOB/DYSPNEA THROUGHOUT SHIFT. PT WAS UP TO RECLINER MULTIPLE TIMES TODAY AND WAS ABLE TO AMBULATE TO BATHROOM WITH MINIMAL ASSISTANCE. PT APPETITE HAS BEEN IMPROVING PT ABLE TO EAT AND DRINK MORE TODAY. PT'S SON VISITED TWICE DURING SHIFT AND UPDATED.
[2023-11-23 19:44] VITALS: BP 161/72
--- NOTE | 2023-11-23 23:39 | NUR ---
TRANSFER TO MEDICAL FLOOR REPORT RECEIVED FROM NURSE ERIC PT TRANSFERRED TO [facility] AT 2142 VIA [place]. ROOM ORIENTATION AND SAFETY CHECKS COMPLETED. NO SIGNS OF DISTRESS AND PT DENIES DISCOMFORT AT THIS TIME. BED ALARM ON, TELEMTRY IN PLACE.
[2023-11-24 02:54] VITALS: BP 150/58
--- NOTE | 2023-11-24 04:54 | NUR ---
NOC SHIFT SUMMERY PT TRANSFERRED TO RM 303. HAS REMAINED IN NSR ON TELE. NO COMPLAINTS. NO ACUTE DISTRESS. RESTED WELL. BED ALARM ON AND CALL LIGHT WITHIN REACH.
[2023-11-24 05:32] LABS: BASOPHILS ABSOLUTE AUTO 0.03 K/mm3 (0.00-0.23); BASOPHILS PERCENT AUTO 1 % (0-2); EOSINOPHILS PERCENT AUTO 0 % (0-6); Hematocrit 37.5 % (33.0-51.0); Hemoglobin 12.7 g/dL (11.5-16.0); IMMATURE GRAN ABSOLUTE AUTO 0.03 K/mm3 (0.00-0.10); IMMATURE GRAN PERCENT AUTO 1 % (0-1); LYMPHOCYTES ABSOLUTE AUTO 1.85 K/mm3 (0.84-5.20); LYMPHOCYTES PERCENT AUTO 29 % (21-46); MONOCYTES ABSOLUTE AUTO 0.46 K/mm3 (0.16-1.47); MONOCYTES PERCENT AUTO 7 % (4-13); Mean Corpuscular HGB 28.2 pg (26.0-34.0); Mean Corpuscular HGB Conc 33.9 g/dL (31.5-36.5); Mean Platelet Volume 10.5 fL (9.1-12.4); NEUTROPHILS PERCENT AUTO 63 % (41-73); Platelet Count 193 K/mm3 (150-400); RDW Coefficient Variation 12.7 % (11.7-14.2); RDW Standard Deviation 38.8 fL (35.1-46.3); White Blood Cell Count 6.47 K/mm3 (4.00-11.30)
[2023-11-24 05:46] LABS: Mean Corpuscular Volume 83 fL (80-100)
[2023-11-24 06:03] LABS: Bun/Creatinine Ratio 24.7 (12.0-20.0); Calcium, Blood 8.8 mg/dL (8.5-10.1); Creatinine, Blood 0.45 mg/dL (0.40-1.00); Potassium, Blood 2.8 mmol/L (3.5-5.5)
[2023-11-24 07:26] VITALS: BP 152/71
[2023-11-24] MEDS ORDERED: Potassium Chloride 40 MEQ in NS 250 ML IV ONE (07:45)
[2023-11-24] MEDS ORDERED: Potassium Chloride 20 MEQ TabCR PO ONE (10:15)
[2023-11-24 16:23] VITALS: BP 148/72
[2023-11-24] MEDS ORDERED: AmLODIPine Besylate 5 MG Tab PO SCH (18:00)
--- NOTE | 2023-11-24 18:04 | NUR ---
SHIFT SUMMARY PATIENT A/O X 3-4, FORGETFUL, POOR HISTORIAN. COOPERATIVE WITH CARES AND MEDICATIONS. SON ENRIQUE PROVIDED NEW PHONE #[phone]. DISCUSSED NEED FOR FAMILY TO ASSIST WITH MEDICATIONS ON DISCHARGE HOME. ATTEMPTED IV ADMIN OF POTASSIUM, UNABLE TO TOLERATE. DOC AGREEABLE TO CHANGE TO PO, PT TOLERATED WELL. HR MAINTAINING SINUS RHYTHM THIS SHIFT. ABLE TO MAKE NEEDS KNOWN. CALL LIGHT IN REACH, CARES ONGOING
[2023-11-24 20:08] VITALS: BP 151/70
--- NOTE | 2023-11-25 04:10 | NUR ---
SHIFT SUMMARY ADMITTED FOR NEW ONSET AFIB. DNR CODE. PLAN IS FOR DC W/HH WHEN STABLE. WE ARE MONITORING LABS. TELEMETRY: NSR @ 72 BPM. SHE IS ON RA. ADA DIET. ACHS CBG'S, MED SS. SHE IS ON ELIQUIS. 1 ASSIST W/FWW - BSC. SHE IS A&O X4, FORGETFUL AT TIMES. NO NEW CONCERNS THIS SHIFT.
[2023-11-25 04:17] VITALS: BP 145/66
[2023-11-25 05:30] LABS: Albumin, Blood 2.8 g/dL (3.4-5.0); Anion Gap 9 mmol/L (3-11); Blood Urea Nitrogen 10 mg/dL (8-24); CO2, Blood 32 mmol/L (21-32); Calcium, Blood 8.9 mg/dL (8.5-10.1); Chloride, Blood 101 mmol/L (98-108); Creatinine, Blood 0.42 mg/dL (0.40-1.00); Glomerular Filtration Rate 105 (60-); Glucose, Blood 167 mg/dL (70-99); Phosphorus, Blood 1.9 mg/dL (2.5-4.9); Potassium, Blood 2.9 mmol/L (3.5-5.5); Sodium, Blood 139 mmol/L (136-145)
[2023-11-25] MEDS ORDERED: Levothyroxine Sodium 0.075 MG Tab PO SCH (06:00)
[2023-11-25 07:27] VITALS: BP 163/83
[2023-11-25] MEDS ORDERED: Potassium Chloride 20 MEQ TabCR PO SCH (08:00)
[2023-11-25] MEDS ORDERED: Potassium Phosphate Dibasic 30 MM in Dextrose 5% 500 ML IV STA (08:05)
[2023-11-25] MEDS ORDERED: Insulin Human Lispro 100 Units/ML 3ML Syringe SC SCH ×2 (12:00)
[2023-11-25] MEDS ORDERED: MetFORMIN HCl 500 mg PO SCH (12:00)
[2023-11-25 17:06] LABS: Anion Gap 13 mmol/L (3-11); Blood Urea Nitrogen 14 mg/dL (8-24); Bun/Creatinine Ratio 20.6 (12.0-20.0); CO2, Blood 28 mmol/L (21-32); Calcium, Blood 8.5 mg/dL (8.5-10.1); Chloride, Blood 96 mmol/L (98-108); Creatinine, Blood 0.68 mg/dL (0.40-1.00); Glomerular Filtration Rate 93 (60-); Glucose, Blood 367 mg/dL (70-99); Potassium, Blood 3.7 mmol/L (3.5-5.5); Sodium, Blood 133 mmol/L (136-145)
[2023-11-25 17:24] VITALS: BP 152/76
[2023-11-25 19:36] VITALS: BP 117/70
[2023-11-26 00:04] VITALS: BP 146/82
[2023-11-26 00:05] VITALS: BP 146/82
--- NOTE | 2023-11-26 04:35 | NUR ---
PATIENT IS AXOX 3 FORGETFUL AND IMPULSIVE AT TIMES. DOES NOT ALWAYS FOLLOW DIRECTIONS. DENIES CHEST PAIN, SOB, AND N/V. VSS/AFEBRILE. SBA TO BSC. PIV INTACT. CBG 256. PHOTOGRAPHIC EQUIPMENT MECHANIC NSR 62. CALL LIGHT IN REACH. BED ALARM FOR IMPULSIVENESS. WILL CONTINUE TO MONITOR UNTIL DAY SHIFT NURSE ASSUMES CARE.
[2023-11-26 07:27] VITALS: BP 138/88
[2023-11-26 07:55] LABS: Hematocrit 40.7 % (33.0-51.0); Mean Corpuscular HGB 28.5 pg (26.0-34.0); Mean Corpuscular HGB Conc 34.4 g/dL (31.5-36.5); Mean Corpuscular Volume 83 fL (80-100); Mean Platelet Volume 9.9 fL (9.1-12.4); Platelet Count 205 K/mm3 (150-400); RDW Coefficient Variation 12.3 % (11.7-14.2); RDW Standard Deviation 37.5 fL (35.1-46.3); Red Blood Cell Count 4.92 M/mm3 (3.80-5.20); White Blood Cell Count 5.19 K/mm3 (4.00-11.30)
[2023-11-26 08:09] LABS: Albumin, Blood 2.9 g/dL (3.4-5.0); Anion Gap 9 mmol/L (3-11); Blood Urea Nitrogen 10 mg/dL (8-24); Bun/Creatinine Ratio 17.9 (12.0-20.0); CO2, Blood 33 mmol/L (21-32); Calcium, Blood 8.9 mg/dL (8.5-10.1); Chloride, Blood 101 mmol/L (98-108); Creatinine, Blood 0.56 mg/dL (0.40-1.00); Glomerular Filtration Rate 98 (60-); Glucose, Blood 89 mg/dL (70-99); Phosphorus, Blood 2.7 mg/dL (2.5-4.9); Sodium, Blood 140 mmol/L (136-145)
[2023-11-26] MEDS ORDERED: Potassium Chloride 20 MEQ TabCR PO ONE (10:00)
[2023-11-26] MEDS ORDERED: ELIQUIS5 M2 PO (13:38)
[2023-11-26] MEDS ORDERED: METF500 PO (13:39)
[2023-11-26] MEDS ORDERED: Lopressor 25 mg25 MG PO (13:39)
[2023-11-26] MEDS ORDERED: PANT40 PO (13:40)
[2023-11-26] MEDS ORDERED: K-Dur20 MEQ PO (13:41)
--- NOTE | 2023-11-26 16:40 | NUR ---
DISCHARGE THIS EXPLAINED DISCHARGE INSTRUCTIONS AND MEDICATIONS TO PT'S SON. HE REPORTS HE UNDERSTANDS. PT TRANSFERRED TO PRIVATE VEHICLE VIA WHEELCHAIR. PT'S BELONGINGS WITH PT.
== END 2023-11-26 16:40 | disposition home health service (06) | DRG 309 ==
LOC: ER 13:55 → PCU 16:37 → MEDS 16:37 → PCU 18:30 → MEDS 11-23 21:46
PROVIDERS: Emergency Medicine; Family Medicine; Internal Medicine; ADMIT Internal Medicine
DX: I48.0 Paroxysmal atrial fibrillation (principal); N17.9 Acute kidney failure, unspecified; Z66 Do not resuscitate; E03.9 Hypothyroidism, unspecified; M06.9 Rheumatoid arthritis, unspecified; E11.22 Type 2 diabetes mellitus with diabetic chronic kidney disease; I12.9 Hypertensive chronic kidney disease with stage 1 through stage 4 chronic kidney disease, or unspecified chronic kidney disease; N18.2 Chronic kidney disease, stage 2 (mild); E78.5 Hyperlipidemia, unspecified; F32.A Depression, unspecified; E87.6 Hypokalemia; Z86.73 Personal history of transient ischemic attack (TIA), and cerebral infarction without residual deficits; Z98.890 Other specified postprocedural states; Z79.82 Long term (current) use of aspirin; Z79.899 Other long term (current) drug therapy; Z79.4 Long term (current) use of insulin; Z79.890 Hormone replacement therapy; Z88.5 Allergy status to narcotic agent; Z88.8 Allergy status to other drugs, medicaments and biological substances; Z87.891 Personal history of nicotine dependence
CPT/HCPCS: 36415; 36416; 71045; 74176; 80048; 80053; 80069; 81001; 82010; 82272; 82947; 83605; 83735; 84443; 84484; 85025; 85027; 86850; 86900; 86901; 93005; 93010; 93306; 94760; 94762; 96365; 96366; 96375; 96376; 97110; 97116; 97162; 97530; 99285-25; A9270; C9113; J1650; J1815; J2405; J3480; J7030; J7040; J7050; J7060; J7120; U0002

== ENCOUNTER → 2024-03-05 | Outpatient (CLI) | payer OTHER ==
[~2024-03-05] MED LIST changes: +ELIQUIS5 M2 PO; +K-Dur20 MEQ PO; +Lopressor 25 mg25 MG PO; +METF500 PO
[2024-03-05 21:07] LABS: Creatinine, Urine Random 28.7 mg/dL (27.00-270.00); Microalb/Creat Ratio UR, Rand 27.735 mg/g (0.000-30.000); Microalbumin, Random Urine 7.96 mg/L (0.000-20.000)
== END ==
LOC: LAB 12:30 → LAB SHORT 12:30
PROVIDERS: Nurse Practitioner Family
DX: E11.8 Type 2 diabetes mellitus with unspecified complications (principal)
CPT/HCPCS: 82043; 82570

== ENCOUNTER 2024-05-13 06:11 | Inpatient (IN) | payer OTHER ==
[~2024-05-13] VITALS: Ht 157.5 cm; Wt 60.2 kg
[2024-05-13] VITALS (38 sets, daily range): BP systolic 83–141; BP diastolic 50–94
[2024-05-13] MEDS ORDERED: Lactated Ringer's 1,000 ML IV ONE ×2 (08:10→08:35)
[2024-05-13 08:18] LABS: BASOPHILS ABSOLUTE AUTO 0.05 K/mm3 (0.00-0.23); BASOPHILS PERCENT AUTO 0 % (0-2); EOSINOPHILS PERCENT AUTO 0 % (0-6); Hematocrit 42.7 % (33.0-51.0); Hemoglobin 13.8 g/dL (11.5-16.0); IMMATURE GRAN ABSOLUTE AUTO 0.15 K/mm3 (0.00-0.10); IMMATURE GRAN PERCENT AUTO 1 % (0-1); LYMPHOCYTES ABSOLUTE AUTO 0.59 K/mm3 (0.84-5.20); LYMPHOCYTES PERCENT AUTO 3 % (21-46); MONOCYTES ABSOLUTE AUTO 0.88 K/mm3 (0.16-1.47); MONOCYTES PERCENT AUTO 5 % (4-13); Mean Corpuscular HGB 28.8 pg (26.0-34.0); Mean Corpuscular HGB Conc 32.3 g/dL (31.5-36.5); Mean Corpuscular Volume 89 fL (80-100); Mean Platelet Volume 10.7 fL (9.1-12.4); NEUTROPHILS ABSOLUTE AUTO 16.62 K/mm3 (1.96-9.15); NEUTROPHILS PERCENT AUTO 91 % (41-73); Platelet Count 287 K/mm3 (150-400); RDW Coefficient Variation 13.5 % (11.7-14.2); RDW Standard Deviation 44.4 fL (35.1-46.3); White Blood Cell Count 18.29 K/mm3 (4.00-11.30)
[2024-05-13] MEDS ORDERED: Metoclopramide HCl 5MG / ML 2ML Vial IV ONE (08:25)
[2024-05-13] MEDS ORDERED: Magnesium Sulf 2 GM/Water 50ML 50 ML IV ONE (08:25)
[2024-05-13 08:29] LABS: Magnesium, Blood 2.3 mg/dL (1.6-2.4)
[2024-05-13 08:31] LABS: Albumin, Blood 3.8 g/dL (3.4-5.0); Bilirubin, Total 1.2 mg/dL (0.1-1.0); Bun/Creatinine Ratio 27.4 (12.0-20.0); Creatinine, Blood 1.35 mg/dL (0.40-1.00); Globulin, Blood 3.7 g/dL (2.2-4.0); Potassium, Blood 3.9 mmol/L (3.5-5.5); Total Protein, Blood 7.5 g/dL (6.4-8.2)
[2024-05-13] MEDS ORDERED: Potassium Chl 20MEQ/Water100ML 100 ML IV ONE (09:20)
[2024-05-13] MEDS ORDERED: Insulin Human Regular 100 UNIT in NS 100 ML IV SCH (09:20)
[2024-05-13 09:35] LABS: Base Excess Venous -27.4 mmol/L; Bicarbonate Venous 7.4 mmol/L (24.0-30.0); PCO2 Venous 22.7 mmHg (38-42); pH Blood Venous 6.94 (7.34-7.37)
[2024-05-13 10:31] LABS: Source, Urine Straight Cath
[2024-05-13 10:39] LABS: Appearance, Urine Clear (Clear); Bilirubin, Urine Neg (Neg); Blood, Urine Neg (Neg); Color, Urine Yellow (P-Yellow); Glucose Qualitative, Urine 4+ (Neg); Ketones, Urine 4+ (Neg); Leukocyte Esterase, Urine Neg (Neg); Nitrite, Urine Neg (Neg); Protein, Urine 2+ (Neg); Urobilinogen, Urine NORM (Normal)
[2024-05-13] MEDS ORDERED: Potassium Chloride 20 MEQ in Lactated Ringer's 1,000 ML IV SCH (10:40)
[2024-05-13] MEDS ORDERED: FLU VACC TS2024-25(6MOS UP)/PF 45 MCG/0.5 ML SYRINGE IM PRN (10:40)
[2024-05-13 10:54] LABS: Bacteria Not Seen /hpf; Red Blood Cells, Urine 0-2 /hpf (0-2); Squamous Epithelial Cells Few /hpf (Few); White Blood Cells, Urine Not Seen /hpf (0-5)
[2024-05-13 11:44] LABS: Glucose, Blood 584 mg/dL (70-99)
[2024-05-13 12:06] LABS: Bicarbonate Venous 6.4 mmol/L (24.0-30.0); PCO2 Venous 12.1 mmHg (38-42)
[2024-05-13 12:07] LABS: pH Blood Venous 6.92 (7.34-7.37)
[2024-05-13 12:08] LABS: Base Excess Venous -30.1 mmol/L
[2024-05-13] MEDS ORDERED: Sevelamer Carbonate 800 MG Tab PO SCH (12:30)
[2024-05-13 13:40] LABS: Bun/Creatinine Ratio 28.5 (12.0-20.0); Calcium, Blood 9.9 mg/dL (8.5-10.1); Creatinine, Blood 1.44 mg/dL (0.40-1.00); Potassium, Blood 4.5 mmol/L (3.5-5.5)
[2024-05-13 14:54] LABS: Bicarbonate Venous 10.1 mmol/L (24.0-30.0); PCO2 Venous 21.6 mmHg (38-42); pH Blood Venous 7.13 (7.34-7.37)
--- NOTE | 2024-05-13 15:17 | NUR ---
ASSUMED CARE PT IS A&OX2, LETHARGIC, RESPONDS TO VERBAL STIMULI. ON CONTINUOUS FIRE ALARM INSTALLER, HR 100'S. DENIES CP/PRESSURE. MAPS > 65. L/S CLEAR AND DIM IN BASES. KUSSMAL RESPIRATIONS. ON 2L NC, SATS IN THE 90'S. SULLIVAN PATENT AND DRAINING TO GRAVITY. INSULIN GTT AND KCL IN LR INFUSING. PICC LINE PLACED. CALL LIGHT IN REACH.
[2024-05-13 15:52] LABS: Base Excess Venous -14.7 mmol/L; Bicarbonate Venous 14.2 mmol/L (24.0-30.0); PCO2 Venous 30 mmHg (38-42); pH Blood Venous 7.24 (7.34-7.37)
[2024-05-13 16:05] LABS: D-Dimer, Quantitative 2.28 mg/L FEU (0.00-0.52); International Normalized Ratio 0.94; Prothrombin Time Results 10.1 Sec (9.7-11.5)
[2024-05-13 16:15] LABS: Bun/Creatinine Ratio 31.9 (12.0-20.0); Calcium, Blood 9.4 mg/dL (8.5-10.1); Creatinine, Blood 1.35 mg/dL (0.40-1.00); Potassium, Blood 3.6 mmol/L (3.5-5.5)
[2024-05-13] MEDS ORDERED: NS 250 ML IV PRN (17:30)
--- NOTE | 2024-05-13 17:36 | NUR ---
SHIFT SUMMARY PT IS LETHARGIC, RESPONSIVE TO VERBAL STIMULI. A&OX2. ON 2L NC, SATS IN THE 90'S, DENIES SOB. ON CONTINUOUS MICROPHONE BOOM OPERATOR, HR 100-110'S, DENIES CP/PRESSURE. MAPS > 65. SULLIVAN PATENT AND DRAINING TO GRAVITY. PICC LINE PLACED THIS SHIFT. INSULIN, TKO AND KCL IN LR INFUSING. NO ACUTE EVENTS THIS SHIFT.
[2024-05-13] MEDS ORDERED: D5W-1/2NS KCl 20mEq 1,000 ML IV SCH (18:05)
[2024-05-13 19:12] LABS: Base Excess Venous -6.5 mmol/L; Bicarbonate Venous 19.6 mmol/L (24.0-30.0); PCO2 Venous 36.2 mmHg (38-42); pH Blood Venous 7.34 (7.34-7.37)
[2024-05-13 19:34] LABS: Bun/Creatinine Ratio 34.2 (12.0-20.0); Calcium, Blood 9.3 mg/dL (8.5-10.1); Creatinine, Blood 1.2 mg/dL (0.40-1.00); Potassium, Blood 3.7 mmol/L (3.5-5.5)
--- NOTE | 2024-05-13 20:52 | NUR ---
ASSUMPTION OF CARE: ASSUMED CARE OF PT AT 1915. PT ALERT AND ORIENTED TO SELF AND LOCATION. VERY SOMNOLENT AND FALLS BACK ALSEEP WHEN NOT STIMULATED. ON 2L NC WITH SPO2 MID TO HIGH 90'S. ETCO2 12-24. AUTOMOBILE MECHANIC ASSISTANT IN PLACE, ST WITH HR 100'S. SBP 120-130'S. INSULIN GTT AT 2.3 UNITS PER HOUR. D5 1/2 KCL AT 150 ML/HR. PICC TO CARLOS PATENT. PIV TO DEDRICK PATENT AND SALINE LOCKED. SULLIVAN PATENT AND DRAINING TO GRAVITY. NO BM YET. PT DENIES PAIN IN RIGHT HIP. PULSES FAINT IN RIGHT FOOT BUT PALPABLE. BED LOW AND LOCKED. CALL LIGHT IN REACH
[2024-05-13 22:48] LABS: Base Excess Venous -3.1 mmol/L; PCO2 Venous 39.8 mmHg (38-42); pH Blood Venous 7.36 (7.34-7.37)
[2024-05-13 23:18] LABS: Bun/Creatinine Ratio 35.6 (12.0-20.0); Calcium, Blood 9.1 mg/dL (8.5-10.1); Creatinine, Blood 1.04 mg/dL (0.40-1.00); Potassium, Blood 3.8 mmol/L (3.5-5.5)
[2024-05-14] VITALS (38 sets, daily range): BP systolic 102–155; BP diastolic 38–106
[2024-05-14 03:05] LABS: Bun/Creatinine Ratio 36.8 (12.0-20.0); Calcium, Blood 8.8 mg/dL (8.5-10.1); Creatinine, Blood 0.9 mg/dL (0.40-1.00); Potassium, Blood 3.8 mmol/L (3.5-5.5)
[2024-05-14 03:09] LABS: Base Excess Venous 0.3 mmol/L; Bicarbonate Venous 24.3 mmol/L (24.0-30.0); PCO2 Venous 43.6 mmHg (38-42); pH Blood Venous 7.38 (7.34-7.37)
[2024-05-14] MEDS ORDERED: FentaNYL Citrate 50 MCG/ML 2 ML Injection IV PRN (04:20)
--- NOTE | 2024-05-14 05:44 | NUR ---
SHIFT SUMMARY: NO ACUTE CHANGES OVERNIGHT. PT CONTINUES TO BE SOMNOLENT T/O THE NIGHT. AWAKENS TO VERBAL STIMULI BUT FALLS BACK ASLEEP QUICKLY. UNABLE TO STAY AWAKE LONG ENOUGH TO PARTICIPATE IN A FULL CONVERSATION. ANSWERS YES AND NO QUESTIONS. A&O TO PERSON AND LOCATION. PT ON RA WITH SPO2 MID 90'S. DENIES SOB. DENIES PAIN. TRACK REPAIRER HELPER REMAINS IN PLACE, SR/ST 90-110'S. SBP 120-140, MAP >65. DENIES CP/PRESSURE. INSULIN DRIP AT 1.2 UNITS/HR THIS AM, SEE FLOWSHEET FOR TITRATIONS. D5 1/2 WITH KCL AT 150 ML/HR. ATTEMPTED TO GIVE PT WATER AND SHE IMMEDIATELY STARTED COUGHING. SULLIVAN PATENT AND DRAINING TO GRAVITY. NO BM THIS SHIFT. PICC TO CARLOS, PATENT. PIV TO DEDRICK PATENT AND SALINE LOCKED. PULSES CONTINUE TO BE WEAK IN RIGHT FOOT, BUT PALPABLE. BED LOW AND LOCKED, CALL LIGHT IN REACH.
[2024-05-14] MEDS ORDERED: Pantoprazole Sodium 40 MG Tab PO SCH (06:00)
[2024-05-14] MEDS ORDERED: Levothyroxine Sodium 0.075 MG Tab PO SCH (06:00)
[2024-05-14 06:55] LABS: Base Excess Venous -0.2 mmol/L; Bicarbonate Venous 23.9 mmol/L (24.0-30.0); PCO2 Venous 41.1 mmHg (38-42); pH Blood Venous 7.39 (7.34-7.37)
[2024-05-14 07:12] LABS: Bun/Creatinine Ratio 35.5 (12.0-20.0); Calcium, Blood 8.9 mg/dL (8.5-10.1); Creatinine, Blood 0.76 mg/dL (0.40-1.00); Potassium, Blood 3.9 mmol/L (3.5-5.5)
--- NOTE | 2024-05-14 07:30 | NUR ---
ASSUMED CARE OF PATIENT AT APPROXIMATELY 0700. REPORT RECEIVED FROM ROXIE VILLARREAL. PT ASLEEP IN BED, DIFFICULT TO AROUSE BUT EASILY REDIRECTABLE AND INTERACTING APPROPRIATELY WITH STAFF DURING BEDSIDE REPORT. DENIES PAIN AT THIS TIME. CONTINOUS CARDIAC MONITORING IN PLACE SHOWING STACH, BP STABLE. ON RA WITH O2 SATURATION OF 94%. INSULIN INFUSING AT 1.2 U/HR, D5 1/2 NS c KCL INFUSING AT 150 mL/HR. NO ACUTE NEEDS IDENTIFIED AT THIS TIME. SEE SHIFT ASSESSMENT FOR FULL DETAILS.
[2024-05-14] MEDS ORDERED: Ondansetron HCl 2 MG / ML 2ML Vial IV PRN (08:10)
[2024-05-14] MEDS ORDERED: NS 1,000 ML IV SCH (08:10)
[2024-05-14] MEDS ORDERED: Insulin Human Lispro 100 Units/ML 3ML Syringe SC SCH ×3 (09:00→21:00)
[2024-05-14] MEDS ORDERED: Atorvastatin 10 MG Tab PO SCH (09:00)
[2024-05-14] MEDS ORDERED: Enoxaparin 30 MG/0.3 ML SYR SC SCH (09:00)
[2024-05-14] MEDS ORDERED: Enoxaparin 40 MG/0.4 ML SYR SC SCH (09:00)
--- NOTE | 2024-05-14 10:51 | NUR ---
TRANSITION OFF OF INSULIN DRIP + NS INFUSION SPOKE WITH DR. FRANK REGARDING PT TRANSITION TO SLIDING SCALE, NO LONG ACTING ORDERS WERE PLACED. PER DR. FRANK, PT TAKES METFORMIN AT HOME SO WE WILL JUST TREAT WITH LONG ACTING AND MONITOR CBG'S AND, IF NECESSARY, LONG ACTING WILL BE ADDED THIS EVENING. DISCUSSED PT DIET ORDER AND Na+ TREND. WILL CONTINUE NS INFUSION ORDERED.
--- NOTE | 2024-05-14 11:00 | NUR ---
MODESTA SPOKE WITH PHARMACY REGARDING RENVELA. PT MED ADMINSTRATION IS CRUSHED IN APPLESAUCE AND RENVELA IS ENTERIC COATED. PHARMARCY SPOKE WITH DR. FRANK WHO WILL REVIEW LABS AND OK'ED DC OF RENVELA.
[2024-05-14] MEDS ORDERED: TraMADol HCl 50 MG Tab PO PRN (14:55)
--- NOTE | 2024-05-14 18:09 | NUR ---
SHIFT SUMMARY PT BECAME MORE ALERT AND ORIENTED T/O SHIFT, ABLE TO VERBALIZE WHY SHE IS IN THE HOSPITAL. ABLE TO FOLLOW COMMANDS, MAKE PURPOSEFUL MOVEMENTS, AND MAKE NEEDS KNOWN. AFEBRILE AND DENIES PAIN. CONTINUOUS CARIDAC MONITORING IN PLACE SHOWED STACH WITH HR IN 100'S-110'S. BP STABLE WITH MAP > 65. ON 2 LPM O2 VIA NC INTERMITTENTLY WITH SLEEP. NO BM THIS SHIFT. ONE EPISODE OF NAUSEA WITH DINNER WITH SPONTANEOUS RESOLUTION. TOLERATED PUREE DIET WELL. PICC TO CARLOS INFUSING NS AT 100mL/HR, PIV TO DEDRICK. SON UPDATED ON TRANSFER. REPORT GIVEN TO ROXIE BEAN (ROOM 214) AT 1741, PT TRANSFERRED AT 1755.
--- NOTE | 2024-05-14 19:25 | NUR ---
TRANSFER: REPORT RECEIVED FROM HAND HEEL SEAT FITTER. PT TO UNIT AT ABOUT 1800. PT ORIENTED X1, SLEEPY BUT FOLLOWS COMMANDS. LUNGS ARE CLEAR, 98% ON RA. PT ABLE TO WIGGLE TOES TO R FOOT, DENIES N/T, DENIES PAIN. PT ORIENTED TO ROOM AND CALL LIGHT. BED ALARM ON FOR SAFETY. REPORT PASSED TO NOC ROXIE CHILDS
[2024-05-14] MEDS ORDERED: Metoprolol Tartrate 25 MG Tab PO SCH (21:00)
[2024-05-14] MEDS ORDERED: Insulin Glargine-Yfgn 100 Unit/mL 3 ML SYR SC SCH (21:00)
[2024-05-15] VITALS (15 sets, daily range): BP systolic 107–179; BP diastolic 58–91
[2024-05-15] MEDS ORDERED: Insulin Human Lispro 100 Units/ML 3ML Syringe SC SCH ×2 (00:30→16:30)
[2024-05-15 06:08] LABS: Magnesium, Blood 2.4 mg/dL (1.6-2.4)
[2024-05-15 06:23] LABS: Albumin, Blood 2.8 g/dL (3.4-5.0); Anion Gap 21 mmol/L (3-11); Blood Urea Nitrogen 23 mg/dL (8-24); Bun/Creatinine Ratio 33.7 (12.0-20.0); CO2, Blood 13 mmol/L (21-32); Calcium, Blood 9.3 mg/dL (8.5-10.1); Chloride, Blood 117 mmol/L (98-108); Creatinine, Blood 0.68 mg/dL (0.40-1.00); Glomerular Filtration Rate 92 (60-); Glucose, Blood 249 mg/dL (70-99); Potassium, Blood 4.1 mmol/L (3.5-5.5); Sodium, Blood 147 mmol/L (136-145)
[2024-05-15 06:34] LABS: Phosphorus, Blood 2.3 mg/dL (2.5-4.9)
--- NOTE | 2024-05-15 08:09 | NUR ---
SHIFT SUMMARY NOC. PT A/O X3, UNABLE TO STATE TIME/DATE. BED ALARM SET FOR SAFETY, PT DID NOT TRY TO GET UP OOB. PT REPORTED PAIN IN HIP BUT STATED IS TOLERABLE AND DECLINED MEDICATION. SULLIVAN PATENT AND DRAINING TO GRAVITY. PICC LINE DRAWS WELL. BLOOD SUGARS RUNNING IN 200S. PT MEDICATED PER EMAR. PT NPO SINCE 0000 AND BLOOD SUGARS UPDATED TO Q6 HRS. CALL LIGHT IN REACH.
[2024-05-15] MEDS ORDERED: Polyethylene Glycol 3350 17 gm PO SCH (09:00)
[2024-05-15] MEDS ORDERED: AmLODIPine Besylate 5 MG Tab PO SCH (09:00)
[2024-05-15] MEDS ORDERED: CeFAZolin Sodium 2,000 MG in NS 100 ML IV SCH ×2 (09:05→22:00)
[2024-05-15] MEDS ORDERED: Tranexamic Acid 1,000 MG in NS 100 ML IV SCH (09:05)
[2024-05-15] MEDS ORDERED: Potassium Phosphate Dibasic 20 MM in Dextrose 5% 500 ML IV STA (10:20)
[2024-05-15] MEDS ORDERED: Lactated Ringer's 1,000 ML IV SCH (12:25)
[2024-05-15] MEDS ORDERED: CeFAZolin Sodium 2,000 MG VIAL ONE (12:32)
[2024-05-15] MEDS ORDERED: Bupivacaine 0.5% HCl 5 MG/ML 30MLVIAL ONE (13:05)
--- NOTE | 2024-05-15 13:36 | NUR ---
PT TO DAY SURGERY AT APPROX 1315.
[2024-05-15] MEDS ORDERED: Etomidate 2MG / ML 10ML Vial ONE (14:00)
[2024-05-15] MEDS ORDERED: Albumin (Human) 12.5gm/250ml 250 ML IV ONE (14:00)
[2024-05-15] MEDS ORDERED: FentaNYL Citrate 50 MCG/ML 2 ML Injection ONE ×2 (14:01→14:36)
[2024-05-15] MEDS ORDERED: Dexamethasone Sod Phos 10 MG/ML 1ML VIAL ONE (14:12)
[2024-05-15] MEDS ORDERED: Ondansetron HCl 2 MG / ML 2ML Vial ONE (14:12)
[2024-05-15] MEDS ORDERED: Phenylephrine HCl 10mg/ml 1 ml Vial ONE (14:14)
--- NOTE | 2024-05-15 14:47 | NUR ---
05/15/24 1447 Duyen Thrasher PATIENT HAD SULLIVAN CATHETER IN PLACE PRIOR TO ARRIVING TO OR. SULLIVAN DRAINING CONCENTRATED YELLOW, CLEAR,URINE.
[2024-05-15] MEDS ORDERED: Bisacodyl 10 MG Supp PR PRN (15:10)
[2024-05-15] MEDS ORDERED: Acetaminophen 325 MG TABLET PO PRN (15:10)
[2024-05-15] MEDS ORDERED: Naloxone HCl 0.4MG / ML 1ML Vial IV PRN (15:15)
[2024-05-15] MEDS ORDERED: HYDROmorphone HCl/Pf 1MG SYR IV PRN (15:15)
[2024-05-15] MEDS ORDERED: FLU VACC TS2024-25(6MOS UP)/PF 45 MCG/0.5 ML SYRINGE IM SCH (15:15)
[2024-05-15] MEDS ORDERED: Ondansetron 4 MG TAB PO PRN (15:20)
[2024-05-15] MEDS ORDERED: TraMADol HCl 50 MG Tab PO PRN (15:20)
[2024-05-15] MEDS ORDERED: Ondansetron HCl 2 MG / ML 2ML Vial IV PRN (15:20)
[2024-05-15] MEDS ORDERED: NS KCl 20mEq 1,000 ML IV SCH (15:20)
[2024-05-15] MEDS ORDERED: Magnesium Hydroxide Conc 10 ML UDC PO PRN (15:20)
[2024-05-15] MEDS ORDERED: Ketorolac Tromethamine 15mg Vial IV PRN (15:25)
--- NOTE | 2024-05-15 16:16 | NUR ---
POST OP S/P R HIP PINNING. GAUZE + TEGADERM DRESSING TO R HIP IS CDI. PT ABLE TO WIGGLE TOES. PEDAL PULSE STRONG AND CAP REFILL <3 SECONDS. PT DENIES PAIN AND DENIES N/T. PT DROWSY, BUT AWAKENS EASILY AND ANSWERS QUESTIONS APPRPRIATELY. PT TOLERATING SIPS OF THICKENED WATER. IVF INFUSING PER ORDERS. SULLIVAN PATENT WITH YELLOW URINE IN BAG. POST OP VS IN PROGRESS AND STABLE. ON 2L 02 VIA NC AND PLANNING TO WEAN TOLERATED. CONT BIOX IN PLACE. BED ALARM IN PLACE FOR SAFETY. SON AT BEDSIDE FOR SUPPORT. CALL LIGHT WITHIN REACH.
--- NOTE | 2024-05-15 16:37 | NUR ---
Pt. is still recovering from surgery, and is not responsive. Son is at bedside and this chart will reflect my visit with him. Son is pleasant. Son has been a longtime PT health care assistant for his family members, including the Pt. who shares the same home with the son. Facilitated a lengthy life review and listened with patient interest. The son displayed evidence of needing someone to talk to. After quite a while a nurse came to check vitals. The son verbalized gratitude for this search marketing specialist checking up on his mom.
[2024-05-15] MEDS ORDERED: Docusate Sodium 100 MG Cap PO SCH (21:00)
[2024-05-16 02:15] VITALS: BP 144/58
--- NOTE | 2024-05-16 04:45 | NUR ---
SHIFT SUMMARY NOC. PT POD 1 FOR RIGHT HIP PINNING. GAUZE WITH TEGADERM DRESSING C/D/I ASIDE FROM SEROSANG DRAINAGE PRESENT. PT A/O X2-3, PT COOPERATIVE BUT INTERMITTENTLY CONFUSED, BED ALARM SET FOR SAFETY. PT DENIES PAIN IN RIGHT HIP, DECLINED OFFERED PAIN MEDICATION. PT TAKES PILLS CRUSHED WITH APPLESAUCE. PT ON DYSPHAGIA PRECAUTIONS. ENCOURAGING PULMONARY TOILETING AND ENCOURAGING I.S. USE, PT HAS UNPRODUCTIVE COUGH. SULLIVAN PATENT AND DRAINING TO GRAVITY. BLOOD SUGAR WAS 169, PT MEDICATED WITH LONG ACTING INSULIN PER EMAR. CALL LIGHT IN REACH.
[2024-05-16 04:52] VITALS: BP 147/68
[2024-05-16 06:25] LABS: BASOPHILS ABSOLUTE AUTO 0.04 K/mm3 (0.00-0.23); BASOPHILS PERCENT AUTO 1 % (0-2); EOSINOPHILS PERCENT AUTO 0 % (0-6); Hematocrit 34.7 % (33.0-51.0); Hemoglobin 11.4 g/dL (11.5-16.0); IMMATURE GRAN ABSOLUTE AUTO 0.18 K/mm3 (0.00-0.10); IMMATURE GRAN PERCENT AUTO 2 % (0-1); LYMPHOCYTES PERCENT AUTO 9 % (21-46); MONOCYTES ABSOLUTE AUTO 0.37 K/mm3 (0.16-1.47); MONOCYTES PERCENT AUTO 4 % (4-13); Mean Corpuscular HGB 28.6 pg (26.0-34.0); Mean Corpuscular HGB Conc 32.9 g/dL (31.5-36.5); Mean Corpuscular Volume 87 fL (80-100); Mean Platelet Volume 10.2 fL (9.1-12.4); NEUTROPHILS PERCENT AUTO 84 % (41-73); Platelet Count 204 K/mm3 (150-400); RDW Coefficient Variation 14.9 % (11.7-14.2); RDW Standard Deviation 48.1 fL (35.1-46.3); Red Blood Cell Count 3.98 M/mm3 (3.80-5.20); White Blood Cell Count 8.49 K/mm3 (4.00-11.30)
[2024-05-16 06:42] LABS: Bun/Creatinine Ratio 29.6 (12.0-20.0); Calcium, Blood 9.5 mg/dL (8.5-10.1); Creatinine, Blood 0.71 mg/dL (0.40-1.00); Magnesium, Blood 2.5 mg/dL (1.6-2.4); Potassium, Blood 4.7 mmol/L (3.5-5.5)
[2024-05-16 07:33] VITALS: BP 172/65
[2024-05-16] MEDS ORDERED: Lactated Ringer's 1,000 ML IV ONE (08:50)
[2024-05-16] MEDS ORDERED: Insulin Glargine-Yfgn 100 Unit/mL 3 ML SYR SC ONE (09:00)
[2024-05-16] MEDS ORDERED: Enoxaparin 40 MG/0.4 ML SYR SC SCH (09:00)
[2024-05-16 13:54] LABS: Bun/Creatinine Ratio 29.6 (12.0-20.0); Calcium, Blood 9.2 mg/dL (8.5-10.1); Creatinine, Blood 0.64 mg/dL (0.40-1.00); Potassium, Blood 3.6 mmol/L (3.5-5.5)
[2024-05-16 15:10] VITALS: BP 129/47
--- NOTE | 2024-05-16 16:19 | NUR ---
Pt. is sitting up in a chair and welcomed my visit. Pt. displays evidence of being uncomfortable but is pleasant. Proceeded to re-establish rapport as we realized that I knew the Pts. mother and that the Pt. lived in my neighborhood. The Pt. displayed evidence of being encouraged. Prayed for the Pt. Pt. verbalized gratitude for the spiritual care visit.
[2024-05-16] MEDS ORDERED: Lactated Ringer's 1,000 ML IV SCH (17:00)
--- NOTE | 2024-05-16 18:10 | NUR ---
SUMMARY: PT IS POD1 R HIP PINNING. ORIENTED X1, CONTINUES TO BE DROWSY BUT DOES AWAKEN TO VOICE. PT IS VERY SLOW TO FOLLOW COMMANDS. SURGICAL SITE WNL. PAIN APPEARS TO BE MANAGED WITH TYLENOL. PT ABLE TO WORK A LITTLE WITH THERAPY AND AMBULATE TO RECLINER. SEE EMAR FOR INSULIN COVERAGE, LR INFUSING. BED ALARM ON FOR SAFETY, ASPIRATION PRECAUTIONS IN PLACE. NO ACUTE SAFETY CONCERNS AT THIS TIME.
[2024-05-16 19:49] VITALS: BP 115/94
[2024-05-17 03:48] VITALS: BP 160/65
--- NOTE | 2024-05-17 04:23 | NUR ---
SHIFT SUMMARY POD 2 R HIP PINNING PT SLEPT FOR MOST OF NIGHT. DENIES ANY PAIN. TOLERATING PO INTAKE. SULLIVAN DRAINING YELLOW URINE. DRESSING TO R HIP HAS SOME SLIGHT SHADOWING BUT OTHERWISE C/D/I. PT MOVING LEGS WHILE IN BED, DENIES N/T. VSS. NO OTHER CONCERNS AT THIS TIME, CALL LIGHT WITHIN REACH
[2024-05-17 07:11] VITALS: BP 147/78
[2024-05-17 07:34] LABS: Albumin, Blood 2.6 g/dL (3.4-5.0); Anion Gap 8 mmol/L (3-11); Blood Urea Nitrogen 12 mg/dL (8-24); Bun/Creatinine Ratio 22.7 (12.0-20.0); CO2, Blood 29 mmol/L (21-32); Calcium, Blood 8.9 mg/dL (8.5-10.1); Chloride, Blood 113 mmol/L (98-108); Creatinine, Blood 0.53 mg/dL (0.40-1.00); Glomerular Filtration Rate 98 (60-); Glucose, Blood 115 mg/dL (70-99); Phosphorus, Blood 0.8 mg/dL (2.5-4.9); Potassium, Blood 2.9 mmol/L (3.5-5.5); Sodium, Blood 147 mmol/L (136-145)
[2024-05-17] MEDS ORDERED: Potassium Phosphate Dibasic 30 MM in Dextrose 5% 500 ML IV STA (08:44)
--- NOTE | 2024-05-17 09:22 | NUR ---
BED TO CHAIR REVIEWED PT NOTES FROM 05/16, SHE WAS ABLE TO DO MORE THAN WHAT HAD BEEN NOTED FROM DAY PRIOR IN MOVING TO THE EDGE OF THE BED AND PERFORMING A STAND PIVOT TRANSFER. SHE SHUFFLED HER FEET T/O THE TRANSFER BUT WAS ABLE TO MAKE IT TO THE CHAIR WITHOUT NEEDING STAFF TO FINISH THE TRANSFER FOR HER. SHE DID NEED FREQUENT REDIRECTIONS SHE WOULD SHUFFLE HER FEET A BIT AND THEN STOP. POSITIONED IN THE CHAIR WITH CHAIR ALARM ON FOR SAFETY. SET UP FOR BREAKFAST.
[2024-05-17 14:24] VITALS: BP 144/69
[2024-05-17] MEDS ORDERED: Lactated Ringer's 1,000 ML IV SCH (15:50)
--- NOTE | 2024-05-17 18:08 | NUR ---
DIVYA DISCUSSED WITH NARCISA BATRES TO RESTART HOME DOSE
[2024-05-17 19:06] LABS: Albumin, Blood 2.6 g/dL (3.4-5.0); Anion Gap 9 mmol/L (3-11); Blood Urea Nitrogen 10 mg/dL (8-24); CO2, Blood 32 mmol/L (21-32); Calcium, Blood 8.4 mg/dL (8.5-10.1); Chloride, Blood 102 mmol/L (98-108); Creatinine, Blood 0.48 mg/dL (0.40-1.00); Glomerular Filtration Rate 101 (60-); Glucose, Blood 183 mg/dL (70-99); Magnesium, Blood 1.8 mg/dL (1.6-2.4); Phosphorus, Blood 1.9 mg/dL (2.5-4.9); Potassium, Blood 2.8 mmol/L (3.5-5.5); Sodium, Blood 140 mmol/L (136-145)
[2024-05-17] MEDS ORDERED: Potassium Chl 20MEQ/Water100ML 100 ML IV ONE (19:20)
[2024-05-17] MEDS ORDERED: Potassium Chloride 20 MEQ TabCR PO ONE (19:20)
[2024-05-17] MEDS ORDERED: Sodium Phosphate 30 MM in Dextrose 5% 500 ML IV ONE (19:20)
--- NOTE | 2024-05-17 19:22 | NUR ---
HOSPITALIST COMMUNICATION CALL PLACED TO HOSPITALIST D/T LAB LEVELS, RECIEVED ORDER FOR K CHLORIDE AND SODIUM PHOSPHATE.
[2024-05-17 19:53] VITALS: BP 151/74
[2024-05-17] MEDS ORDERED: Apixaban 5 MG Tab PO SCH (21:00)
--- NOTE | 2024-05-18 04:24 | NUR ---
SHIFT SUMMARY POD 3 R HIP PINNING PT RESTED FOR MOST OF SHIFT. DENIES ANY PAIN. TOLERATING PO INTAKE. SULLIVAN WAS TAKEN OUT AT START OF SHIFT, PT HAS BEEN VOIDING SINCE. PT ALSO HAD A LARGE BM TONIGHT. DRESSING TO R HIP REMAINS C/D/I. PT 2P ASST WITH FWW AND GB, PT NEEDS LOTS OF CUEING WITH TRANSFERS. VSS. NO OTHER CONCERNS AT THIS TIME, CALL LIGHT WITHIN REACH
[2024-05-18 04:31] VITALS: BP 153/81
[2024-05-18 06:53] LABS: Albumin, Blood 2.7 g/dL (3.4-5.0); Anion Gap 10 mmol/L (3-11); Blood Urea Nitrogen 11 mg/dL (8-24); Bun/Creatinine Ratio 24.6 (12.0-20.0); CO2, Blood 31 mmol/L (21-32); Calcium, Blood 8.9 mg/dL (8.5-10.1); Chloride, Blood 103 mmol/L (98-108); Creatinine, Blood 0.45 mg/dL (0.40-1.00); Glomerular Filtration Rate 102 (60-); Glucose, Blood 187 mg/dL (70-99); Phosphorus, Blood 2.3 mg/dL (2.5-4.9); Potassium, Blood 3.7 mmol/L (3.5-5.5); Sodium, Blood 140 mmol/L (136-145)
[2024-05-18 07:55] VITALS: BP 146/72
[2024-05-18] MEDS ORDERED: Potassium Phosphate Dibasic 30 MM in Dextrose 5% 500 ML IV STA (09:41)
[2024-05-18 15:23] VITALS: BP 127/74
--- NOTE | 2024-05-18 16:54 | NUR ---
SHIFT SUMMARY POD3 R HIP PINNING, A/O X2-3 AND PLEASANTLY FORGETFUL, UP TO CHAIR AT BREAKFAST AND HAS SPENT TODAY UP TO CHAIR WITH STAND PIVOTS TO BSC, FREQUENT VOIDS TODAY AND LAST NIGHT PER NOC REPORT. HER MOVEMENTS ARE SIGNIFICANTLY IMPROVED FROM YESTERDAY.PENDING SNF DC ONCE SHE GETS INSURANCE AUTH. NO ACUT EVENTS THIS SHIFT, CALL LIGHT IN REACH.
--- NOTE | 2024-05-18 18:14 | NUR ---
THIS RN ASSUMED CARE AT APPROX 1700. NO ACUTE CHANGES SINCE LISANDRO RN's DOCUMENTATION AND SHIFT SUMMARY. WILL CONTINUE TO MONITOR AND REPORT TO ONCOMING RN.
[2024-05-18 19:25] VITALS: BP 129/72
[2024-05-19 03:06] VITALS: BP 153/67
--- NOTE | 2024-05-19 05:34 | NUR ---
SHIFT SUMMARY AOX2-SELF, FAMILY, TOWN. FORGETFUL SITUATION, DATE & IMPULSIVE. SETS BED ALARM OFF FREQUENTLY TO "PEE" PER PT, ROUGHLY EVERY 30-40MIN PT WAS ONLY VOIDING 50-100ML. POST VOID BLADDER SCAN SHOWED >400ML IN BLADDER, STRAIGHT CATH'D 600ML URINE OUT. POD 4-R HIP REPAIR. WBAT. DENIES N/T. CAP REFILL <3 SEC. STRONG PULSE. VSS, TELE NSR HR 81. CALL LIGHT &BED ALARM IN PLACE.
[2024-05-19 07:58] VITALS: BP 154/76
[2024-05-19 10:05] LABS: Albumin, Blood 2.7 g/dL (3.4-5.0); Anion Gap 10 mmol/L (3-11); Blood Urea Nitrogen 12 mg/dL (8-24); Bun/Creatinine Ratio 25.5 (12.0-20.0); CO2, Blood 33 mmol/L (21-32); Calcium, Blood 8.9 mg/dL (8.5-10.1); Chloride, Blood 99 mmol/L (98-108); Creatinine, Blood 0.47 mg/dL (0.40-1.00); Glomerular Filtration Rate 101 (60-); Glucose, Blood 257 mg/dL (70-99); Phosphorus, Blood 2.1 mg/dL (2.5-4.9); Potassium, Blood 3.5 mmol/L (3.5-5.5); Sodium, Blood 138 mmol/L (136-145)
[2024-05-19] MEDS ORDERED: Potassium Phosphate Dibasic 30 MM in Dextrose 5% 500 ML IV ONE (12:10)
--- NOTE | 2024-05-19 12:25 | NUR ---
PATIENT TO PREOP FROM ROOM 212 IN BED
[2024-05-19] MEDS ORDERED: Potassium Phosphate,Monobasic 500 MG Tablet PO SCH (14:00)
[2024-05-19 16:05] VITALS: BP 116/67
--- NOTE | 2024-05-19 17:02 | NUR ---
DISCHARGE NOTE PT HAS BEEN A/OX3, 1-2 ASST W/ FWW AND GB TODAY, USING CALL LIGHT INTERMITTENTLY, HAS TRIED TO GET OUT OF CHAIR ON HER OWN. CHAIR ALARM HAS BEEN ON WHILE PT WAS IN RECLINER TODAY. CONT VOIDS, PT USING BEDSIDE COMMODE. TOLERATING PO DIET AND FLUIDS. VSS. PT DENIES PAIN. DRESSING C/D/I. CAP REFILL IN RLE INTACT, PT ABLE TO WIGGLE TOES. PT DC[facility]IA [facility] IN STABLE CONDITION W/ BELONGINGS , REPORT TO MARQUES FAUSTIN GIVEN @ [id number].
== END 2024-05-19 16:44 | DRG 480 ==
LOC: ER 06:11 → ERHOLD 10:41 → SURS 10:41 → ICUE 10:41 → SURS 05-14 18:46
PROVIDERS: Internal Medicine; Orthopaedic Surgery; Student in an Organized Health Care Education/Training Program; ADMIT Family Medicine
PROC: 0QS604Z Reposition Right Upper Femur with Internal Fixation Device, Open Approach (ICD-10-PCS; principal; 2024-05-15 12:30)
DX: S72.001A Fracture of unspecified part of neck of right femur, initial encounter for closed fracture (principal); E11.10 Type 2 diabetes mellitus with ketoacidosis without coma; N17.9 Acute kidney failure, unspecified; R65.10 Systemic inflammatory response syndrome (SIRS) of non-infectious origin without acute organ dysfunction; R57.9 Shock, unspecified; I48.20 Chronic atrial fibrillation, unspecified; E87.0 Hyperosmolality and hypernatremia; Z66 Do not resuscitate; W18.30XA Fall on same level, unspecified, initial encounter; I10 Essential (primary) hypertension; M06.9 Rheumatoid arthritis, unspecified; F32.A Depression, unspecified; E03.9 Hypothyroidism, unspecified; E83.39 Other disorders of phosphorus metabolism; K21.9 Gastro-esophageal reflux disease without esophagitis; I25.10 Atherosclerotic heart disease of native coronary artery without angina pectoris; E86.0 Dehydration; E78.5 Hyperlipidemia, unspecified; E87.6 Hypokalemia; R33.9 Retention of urine, unspecified; G47.33 Obstructive sleep apnea (adult) (pediatric); Z87.891 Personal history of nicotine dependence; Z88.8 Allergy status to other drugs, medicaments and biological substances; Z88.5 Allergy status to narcotic agent; Z79.4 Long term (current) use of insulin; Z79.890 Hormone replacement therapy; Z79.899 Other long term (current) drug therapy; Z86.73 Personal history of transient ischemic attack (TIA), and cerebral infarction without residual deficits; Z79.01 Long term (current) use of anticoagulants; Z79.891 Long term (current) use of opiate analgesic
CPT/HCPCS: 36569; 51701; 51702; 71045; 73502; 80048; 80053; 80069; 81001; 82010; 82803; 82947; 83605; 83735; 84100; 84145; 85025; 85379; 85610; 85730; 87040; 92526; 92610; 93005; 93010; 93306; 94762; 96365-59; 96375-59; 97110; 97162; 97165; 97530; 99285-25; A9270; C1713; C1751; C1769; J0690; J1100; J1650; J1815; J1885; J2371; J2405; J2765; J3010; J3475; J3480; J7030; J7050; J7060; J7120; P9045

== ENCOUNTER → 2025-04-20 | Outpatient (CLI) | payer MEDICARE, OTHER ==
[2025-04-20 20:16] LABS: BASOPHILS ABSOLUTE AUTO 0.07 K/mm3 (0.00-0.23); BASOPHILS PERCENT AUTO 2 % (0-2); EOSINOPHILS ABSOLUTE AUTO 0.05 K/mm3 (0.00-0.68); EOSINOPHILS PERCENT AUTO 1 % (0-6); Hematocrit 38.7 % (33.0-51.0); Hemoglobin 12.7 g/dL (11.5-16.0); IMMATURE GRAN ABSOLUTE AUTO 0.02 K/mm3 (0.00-0.10); IMMATURE GRAN PERCENT AUTO 1 % (0-1); LYMPHOCYTES ABSOLUTE AUTO 1.38 K/mm3 (0.84-5.20); LYMPHOCYTES PERCENT AUTO 33 % (21-46); MONOCYTES ABSOLUTE AUTO 0.22 K/mm3 (0.16-1.47); MONOCYTES PERCENT AUTO 5 % (4-13); Mean Corpuscular HGB Conc 32.8 g/dL (31.5-36.5); Mean Corpuscular Volume 89 fL (80-100); NEUTROPHILS ABSOLUTE AUTO 2.51 K/mm3 (1.96-9.15); NEUTROPHILS PERCENT AUTO 59 % (41-73); NRBC ABSOLUTE 0.00 K/mm3 (0.00-0.02); NRBC Auto 0.0 /100 WBC (0.0-0.2); Platelet Count 216 K/mm3 (150-400); RDW Coefficient Variation 14.1 % (11.7-14.2); RDW Standard Deviation 45.9 fL (35.1-46.3)
[2025-04-20 21:14] LABS: Alanine Aminotransfer (ALT/SGP 18.0 U/L (12-78); Albumin, Blood 3.4 g/dL (3.4-5.0); Albumin/Globulin Ratio 1.1 (0.8-1.8); Anion Gap 8.0 mmol/L (3-11); Aspartate Aminotrans (AST/SGOT 15.0 U/L (12-37); Bilirubin, Total 1.0 mg/dL (0.1-1.0); Blood Urea Nitrogen 11.0 mg/dL (8-24); CO2, Blood 29.0 mmol/L (21-32); Calcium, Blood 9.0 mg/dL (8.5-10.1); Chloride, Blood 105.0 mmol/L (98-108); Creatinine, Blood 0.53 mg/dL (0.40-1.00); Globulin, Blood 3.2 g/dL (2.2-4.0); Glucose, Blood 139.0 mg/dL (70-99); Potassium, Blood 3.9 mmol/L (3.5-5.5); Sodium, Blood 138.0 mmol/L (136-145); Thyroid Stimulating Hormone 34.9 uIU/mL (0.360-4.800); Total Protein, Blood 6.6 g/dL (6.4-8.2)
== END ==
LOC: LAB 14:50 → LAB SHORT 14:50
PROVIDERS: Nurse Practitioner Family
DX: E03.9 Hypothyroidism, unspecified (principal); E11.40 Type 2 diabetes mellitus with diabetic neuropathy, unspecified; I10 Essential (primary) hypertension
CPT/HCPCS: 80053; 83036; 84443; 85025

== ENCOUNTER → 2025-04-24 | Outpatient (CLI) | payer MEDICARE, OTHER ==
[2025-04-24 19:43] LABS: Creatinine, Urine Random 20.7 mg/dL (27.00-270.00); Microalb/Creat Ratio UR, Rand 79.71 mg/g (0.000-30.000); Microalbumin, Random Urine 16.5 mg/L (0.000-20.000)
== END ==
LOC: LAB 16:58 → LAB SHORT 16:58
PROVIDERS: Nurse Practitioner Family
DX: E11.40 Type 2 diabetes mellitus with diabetic neuropathy, unspecified (principal); I10 Essential (primary) hypertension
CPT/HCPCS: 82043; 82570